=== PATIENT | male | born 1995 | race Caucasian/White ===

== ENCOUNTER → 2022-10-21 15:30 | Outpatient (BNVA) | payer OTHER, SELFPAY | PROVIDERS: PCP Nurse Practitioner Family; Visit Provider Surgery | DX: Z01.818 Encounter for other preprocedural examination (principal); K60.3 Anal fistula | CPT/HCPCS: 99202 ==

== ENCOUNTER 2022-11-05 11:15 | Day surgery (SDC) | payer OTHER, SELFPAY ==
--- NOTE | 2022-11-04 09:43 | HO.ANESPROP2 ---
Documented by User: Isis Perrin NP 11/04/22 09:44 HPI - Anesthesia Eval Consult details Narrative: 27yo M for Exam Under Anesthesia, possible fistulotomy or Seton placement PMFSH Active Problems Active Problems: All Active Problems (Updated 11/01/22 @ 13:06 by Windy Bhandari RN) Anal fistula (Acute) Anxiety (Acute) Past Medical History Medical History Anal fistula Anxiety Back pain Panic disorder [episodic paroxysmal anxiety] Family History Family History Mother No problems noted. Father No problems noted. Social History Social History Alcohol intake: current Alcohol intake frequency: other Alcohol type: beer Patient Tobacco Use Status: Current everyday Tobacco user Cigarettes Per Day: 6 Use of substances other than those prescribed or required for medical reasons: No Are you DNR?: No Advance Directives: No Advance Directives Information Provided: Yes Meds Allergies Allergy/AdvReac Type Severity Reaction Status Date / Time No Known Allergies Allergy Verified 10/21/22 15:37 Home Medications Medication Instructions Recorded Confirmed Last Taken Type clonazepam 1 mg tablet 1 mg PO DAILY 10/21/22 11/01/22 Unknown History lurasidone 20 mg tablet 20 mg PO BID 11/01/22 11/01/22 Unknown History quetiapine 25 mg tablet 0.5 - 2 tab PO DAILY PRN as 11/01/22 11/01/22 Unknown History directed sertraline 100 mg tablet 1 tab PO DAILY 11/01/22 11/01/22 Unknown History sertraline 25 mg tablet 1 tab PO DAILY 11/01/22 11/01/22 Unknown History Exam Exam Date and Time: November 04, 2022 0943 Assessment and Plan Assessment Anesthesia Assessment: Chart Reviewed Documented by User: Christy Doll MD 11/05/22 13:50 PMFSH Past Medical History Medical History Anal fistula Anxiety Back pain Panic disorder [episodic paroxysmal anxiety] Functional capacity: independent ambulation Family History Family History Mother No problems noted. Father No problems noted. Family history of problems with anesthesia: No Surgical History History of Problems with Anesthesia: No Social History Social History Alcohol intake: current Alcohol intake frequency: other Alcohol type: beer Patient Tobacco Use Status: Current everyday Tobacco user Cigarettes Per Day: 6 Use of substances other than those prescribed or required for medical reasons: No Are you DNR?: No Advance Directives: No Advance Directives Information Provided: Yes Meds Allergies Allergy/AdvReac Type Severity Reaction Status Date / Time No Known Allergies Allergy Verified 10/21/22 15:37 Home Medications Medication Instructions Recorded Confirmed Last Taken Type clonazepam 1 mg tablet 1 mg PO DAILY 10/21/22 11/01/22 Unknown History lurasidone 20 mg tablet 20 mg PO BID 11/01/22 11/01/22 Unknown History quetiapine 25 mg tablet 0.5 - 2 tab PO DAILY PRN as 11/01/22 11/01/22 Unknown History directed sertraline 100 mg tablet 1 tab PO DAILY 11/01/22 11/01/22 Unknown History sertraline 25 mg tablet 1 tab PO DAILY 11/01/22 11/01/22 Unknown History Assessment and Plan Final Anesthetic Review Family History of Problems with Anesthesia: No History of Problems with Anesthesia: No Final Preanesthetic Review: No Changes in Pt Med Stat, Meds/Allgs Chart Reviewed and Anes Risks/Benef Reviewed Patient Risk: Low Procedure Risk: Low Anesthetic Plan Anesthetic Plan: GA Disposition: Standard PACU
[2022-11-05] VITALS (11 sets, daily range): BP systolic 111–132; BP diastolic 64–87; PULSE 52–69; RESP 16–18; TEMP 36.1–36.6; O2SAT 94–98; BMI 25.8
[2022-11-05] MEDS: Lactated Ringers 1,000 ML 100 ML IVCONT (12:21)
--- NOTE | 2022-11-05 13:31 | W.PM.OPN ---
Operative Note Operative Note Date of Service: 11/05/22 Narrative: Preop diagnosis: anal fistula Postop diagnosis: anal fistula Procedure: Exam under anesthesia, unroofing of anal fistula, seton placement Surgeon: Gianluca Almeida MD The patient is a 27M with a sinus on the right perianal area, with recurrrent draiange, c/w an anal fistula. I exlaine to hm it is best to do an exam under anesthesia, locate the tract and possibly do a fistulotomy or seton placement. He understood the technqiue of this procedure and was aware of the risks, benefits and alterantives. He was brought to the OR and placed in prone jacknife position under general anesthesia via ET tube. The buttocks were retracted with wide tape laterally. The perianal area was prepped and draped in the sual sterile fashion. A surgical timeout was done. The patient received Cefotan preoperatively. Examination of the perianal area revealed an external sinus on the right lateral, about 2-3 cm from the verge. I inserted the Breana Mena retractor and examined the anal canal circumferentially. The internal sinus appeared to be in the posterior midline at the level of the dentate line. The traqct was therefore long and tortuous as it traveled from the external sinus going posterior and laterally then surved back to the posterior midline. I passed the probe through the external sinus easily and was able to follow the tract as it advanced posteriorly. however, because of the long trat and angulation, I could not advance the probe through the internal sinus. I therefore had to unrookf the long tract to make this shorter. I then reinserted the probe through the open tract in the perianal area and eventually, with the shorter tract I was able to advance the probe through the internal sinus. I passed a yellow vessel loop as a seton and looped this with silk 2-0 ties. There were no other indurated areas. I cauterized the unroofed area around the external sinus. Once hemostasis was confirmed, I irrigated and infiltrated the perianal area with Marcaine .%% for postop analgesia. The patient was also noted to have external and internal hemorrhoids. He tolerated the procedure well. There was minimal blood loss. He was extubated without difficulty and transferred to the PACU with stable vital signs.
--- NOTE | 2022-11-05 13:50 | HO.POSTANES ---
Post Anesthesia Evaluation Post Anesthesia Evaluation Vital Signs: Vital Signs Temp Pulse Resp BP Pulse Ox O2 Del Method 11/05/22 12:19 97.8 F 69 16 113/76 96 Room Air Anesthesia: General Endotracheal-GETA Mental Status: Awake Pain Control: Satisfactory Nausea/Vomiting: None Hydration: Adequate Anesthesia-Related Issues: No Anes. Related Issues
[2022-11-05] MEDS: Ketorolac Tromethamine 30 MG/ML VIAL IVPUSH (13:58)
[2022-11-05] MEDS: fentaNYL citrate/PF 100 MCG/2 ML VIAL 25 MCG IVPUSH ×2 (14:00→14:06)
[2022-11-05] MEDS: oxyCODONE HCl Immed Release 5 MG TABLET 10 MG PO (14:01)
[2022-11-05] MEDS: Acetaminophen 325 MG TABLET 650 MG PO (14:04)
== END 2022-11-05 15:30 | disposition home or self-care (01) ==
PROVIDERS: PCP Nurse Practitioner Family; Visit Provider Surgery
PROC: (CPT 46020; principal; 2022-11-05 13:00)
DX: K63.0 Abscess of intestine (principal); K64.8 Other hemorrhoids; K64.4 Residual hemorrhoidal skin tags; F41.9 Anxiety disorder, unspecified; F41.0 Panic disorder [episodic paroxysmal anxiety]; F17.210 Nicotine dependence, cigarettes, uncomplicated; Z79.899 Other long term (current) drug therapy
CPT/HCPCS: 46020; J1100; J1885; J2250; J2405; J2795; J3010

== ENCOUNTER → 2022-11-11 14:22 | Outpatient (BNVA) | payer OTHER, SELFPAY | PROVIDERS: PCP Nurse Practitioner Family; Visit Provider Surgery | DX: Z13.89 Encounter for screening for other disorder (principal) ==

== ENCOUNTER → 2022-12-02 15:40 | Outpatient (BNVA) | payer OTHER, SELFPAY | PROVIDERS: PCP Nurse Practitioner Family; Visit Provider Surgery | DX: Z13.89 Encounter for screening for other disorder (principal) ==

== ENCOUNTER → 2023-01-19 15:55 | Outpatient (BNVA) | payer OTHER, SELFPAY | PROVIDERS: PCP Nurse Practitioner Family; Visit Provider Surgery | DX: K60.3 Anal fistula (principal) | CPT/HCPCS: 99212 ==

== ENCOUNTER → 2023-03-03 11:40 | Outpatient (BNVA) | payer OTHER, SELFPAY | PROVIDERS: PCP Nurse Practitioner Family; Visit Provider Surgery | DX: K60.3 Anal fistula (principal) | CPT/HCPCS: 99212 ==

== ENCOUNTER 2023-12-21 09:27 | Outpatient (AMB) | payer OTHER, SELFPAY ==
--- NOTE | 2023-12-21 09:28 | A.OFFVIS_ITS ---
Intake Vital Signs 12/21/23 09:35 Height 5 ft 7 in BP 129/74 Blood Pressure Location Rt brachial Position Sitting Pulse 101 H Intake Visit Reasons: Anal fistula (surgery 11/05/22) Intake Note: This patient presents for an assessment for anal fistula. Hx surgery 11/05/22. Pt c/o; reports rectal bleeding and discharge, reports occasional constipation. Valve Inspector Required: No Accompanied by: Self / Same As Patient Allergies No Known Allergies Allergy (Verified 12/21/23 09:37) Medication List - Last Reconciled 12/21/23 by Gianluca Almeida MD clonazepam 1 mg PO DAILY ibuprofen 600 mg PO Q6H PRN lurasidone 20 mg PO BID menthol-zinc oxide 0.44-20.6 % (Calmoseptine) 1 appl topical QID PRN menthol-zinc oxide 0.44-20.6 % (Calmoseptine) 1 appl topical QID PRN oxycodone-acetaminophen 5-325 mg (Percocet) 1 tab PO Q4-6H PRN oxycodone-acetaminophen 5-325 mg (Percocet) 1 tab PO TID PRN quetiapine 0.5 - 2 tabs PO DAILY PRN sertraline 1 tab PO DAILY sertraline 1 tab PO DAILY tramadol 50 mg PO TID PRN tramadol 50 mg PO TID PRN HPI Anal fistula (surgery 11/05/22) HPI Details He has had a seton in place for an anal fistula since October,. However, he had seen me in the office since February,. He says says that he had canceled many times as he has issues with transportation. He says he has had some pain on the perianal skin for several months now. He says that this worsens when he is walking. He feels the seton seems to be rubbing against his skin a lot He says he continues to have some drainage. He also sees some blood periodically. [facility] Medical History Panic disorder [episodic paroxysmal anxiety] Back pain Anal fistula Anxiety Surgical History History of surgery (11/05/22) Family History Mother No problems noted. Father No problems noted. Social History Alcohol intake: current Alcohol intake frequency: other Alcohol type: beer Patient Tobacco Use Status: Current everyday Tobacco user Cigarettes Per Day: 6 Review of Systems Const Denies chills and Denies fever(s) Card Denies chest pain, Denies dyspnea and Denies dyspnea on exertion Resp Denies cough, Denies dyspnea and Denies dyspnea on exertion GI Denies hematochezia and Denies change in bowel habits Denies hematuria and Denies difficulty urinating Musc Denies back pain and Denies limited range of motion Neuro Denies focal weakness and Denies convulsions Psych Denies depression and Denies mood swings Physical Exam Vital Signs: Last Vital Signs Pulse 101 H 12/21/23 09:35 BP 129/74 12/21/23 09:35 Const General: comfortable and no acute distress Resp Effort & Inspection: normal respiratory effort Cardio Rate: regular rate GI Other: Rectal exam shows the seton to be in place on the right side, no new induration, no fluctuance, note of circumferential perianal skin irritation, no new sinuses Palpation (GI): Soft to palpation Assessment & Plan Assessment & Plan (1) Anal fistula: Code(s): K60.3 - Anal fistula Plan: He has a seton in place since October,. He has not seen me office in about 9 months He complains of pain around the seton in the perianal area. Examination does not show an obvious abscess or induration. There is note of skin irritation so I am going to put him on trial of Calmoseptine. He wanted some pain medications I will prescribe him tramadol I had advised him on the importance of keeping the area clean and dry I will see him again in the office in about 3 weeks. Medications: New tramadol 50 mg PO TID PRN 20 tabs 0RF pain menthol-zinc oxide 0.44-20.6 % (Calmoseptine) 1 appl topical QID PRN 113 grams 0RF skin irritation Coding Level of Care Code Est Pt Level 3 (22258) Diagnoses Anal fistula K60.3
[2023-12-21 09:35] VITALS: BP 129/74; PULSE 101
== END 2023-12-21 09:46 | disposition home or self-care (01) ==
PROVIDERS: PCP Nurse Practitioner Family; Visit Provider Surgery
DX: K60.3 Anal fistula (principal)
CPT/HCPCS: 99213

== ENCOUNTER → 2023-12-21 09:27 | Outpatient (BNVA) | payer OTHER, SELFPAY | PROVIDERS: PCP Nurse Practitioner Family; Visit Provider Surgery | DX: K60.3 Anal fistula (principal) | CPT/HCPCS: 99212 ==

== ENCOUNTER 2023-12-24 16:01 | Emergency (ER) | payer MEDICAID, SELFPAY ==
[2023-12-24 16:11] VITALS: BP 131/76; PULSE 109; RESP 18; TEMP 36.4; O2SAT 94; BMI 27.4
--- NOTE | 2023-12-24 16:12 | ED_ITS ---
HPI - General Adult General Chief complaint: Skin/Abscess/Foreign Body Stated complaint: infection Time Seen by Provider: 12/24/23 19:12 Related Data Home Medications Medication Instructions Recorded Confirmed clonazepam 1 mg tablet 1 mg PO DAILY 10/21/22 12/21/23 lurasidone 20 mg tablet 20 mg PO BID 11/01/22 12/21/23 quetiapine 25 mg tablet 0.5 - 2 tab PO DAILY PRN as 11/01/22 12/21/23 directed sertraline 100 mg tablet 1 tab PO DAILY 11/01/22 12/21/23 sertraline 25 mg tablet 1 tab PO DAILY 11/01/22 12/21/23 Previous Rx's Medication Instructions Recorded ibuprofen 600 mg tablet 600 mg PO Q6H PRN pain #30 tabs 11/11/22 tramadol 50 mg tablet 50 mg PO TID PRN pain #20 tabs 12/28/22 menthol 0.44 %-zinc oxide 20.6 % 1 appl topical QID PRN perianal 03/03/23 topical ointment (Calmoseptine) skin irritation #113 grams oxycodone-acetaminophen 5 mg-325 1 tab PO TID PRN pain #15 tabs 04/29/23 mg tablet (Percocet) menthol 0.44 %-zinc oxide 20.6 % 1 appl topical QID PRN skin 12/21/23 topical ointment (Calmoseptine) irritation #113 grams tramadol 50 mg tablet 50 mg PO TID PRN pain #20 tabs 12/21/23 cefuroxime axetil 250 mg tablet 250 mg PO BID 7 days #14 tabs 12/24/23 oxycodone-acetaminophen 5 mg-325 1 tab PO Q4-6H PRN pain (scale 12/26/23 mg tablet (Percocet) score 7-10) #15 tabs tramadol 50 mg tablet 50 mg PO Q6H PRN pain #15 tabs 12/26/23 Allergies Allergy/AdvReac Type Severity Reaction Status Date / Time No Known Allergies Allergy Verified 12/24/23 16:20 [facility] Past Medical History Medical History Panic disorder [episodic paroxysmal anxiety] Back pain Anal fistula Anxiety Surgical History History of surgery (11/05/22) Family History Family History Mother No problems noted. Father No problems noted. Social History Social History Alcohol intake: current Alcohol intake frequency: other Alcohol type: beer Patient Tobacco Use Status: Current everyday Tobacco user Cigarettes Per Day: 6 Smoked in Last 30 Days: Yes Use of substances other than those prescribed or required for medical reasons: No Advance Directives: No Advance Directives Information Provided: No Physical Exam ED Vital Signs: BMI result Body Mass Index 27.4 Course Course Course Narrative: This is a rapid medical exam: Additional HPI, ROS, PE not included below will be deferred to primary provider. Patient is a 28-year-old male presenting to the emergency department with complaint of pain to right buttock with purulent drainage and foul odor. Patient has anal fistula with seton in place, saw Dr. Almeida on 12/21 and notes no evidence of abscess or induration but does note skin irritation. Patient was prescribed Calmoseptine and tramadol at that visit. Patient reports bleeding and pain with walking. Denies fevers. Area not visualized in triage due to privacy concerns. Duplicate chart created for same visit, primary provider LALA Burton. Medications Administered Discontinued Medications Generic Name Dose Route Start Last Admin Trade Name Freq PRN Reason Stop Dose Admin Oxycodone HCl 10 mg 12/24/23 20:37 12/24/23 20:55 Oxycodone Hcl Immed Release 5 Mg Tablet PO 12/24/23 20:38 10 mg ONCE ONE Administration Medical Decision Making Lab Data 12/24/23 19:44 12/24/23 19:44 Labs: Lab Results 12/24/23 12/24/23 Range/Units 19:43 19:44 WBC 8.1 (4.8-10.8) X10*3/uL RBC 5.07 (4.60-5.80) X10*6/uL Hgb 15.9 (14.0-18.0) g/dl Hct 44.6 (42.0-52.0) % MCV 88.0 (80.0-98.0) fL MCH 31.4 (27.0-33.0) pg MCHC 35.7 (31.0-36.0) g/dl RDW 11.9 (11.0-16.0) % Plt Count 290 (160-400) X10*3/uL MPV 9.7 (9.4-12.4) fL Immature Gran % (Auto) 0.2 (0.0-0.4) % Neut % (Auto) 52.9 (45-73) % Lymph % (Auto) 38.2 (20-40) % [place] % (Auto) 5.4 (2-11) % Eos % (Auto) 2.8 (0-4) % Baso % (Auto) 0.5 (0-2) % Lymph # (Auto) 3.1 (1.2-4.9) X10*3/uL [place] # (Auto) 0.4 (0.1-1.2) X10*3/uL Eos # (Auto) 0.2 (0.0-0.4) X10*3/uL Baso # (Auto) 0.0 (0.0-0.2) X10*3/uL Abs Immat Gran (auto) 0.02 (0.00-0.03) X10*3/uL Absolute Neuts (auto) 4.3 (2.0-8.3) x10*3/uL Absolute Nucleated RBC 0.000 (0.0-0.012) X10*3/uL Nucleated RBC % (auto) 0.0 (0.0-0.2) /100WBC ESR 2 (0-15) MM/HR Sodium 140 (135-145) mmol/L Potassium 4.5 (3.3-5.1) mmol/L Chloride 104 (96-108) mmol/L Carbon Dioxide 26 (22-29) mmol/L Anion Gap 15 (12-20) BUN 8 L (9-16) mg/dL Creatinine 0.83 (0.5-1.4) mg/dL Estim Creat Clear Calc 136.2 Estimated GFR > 60 Random Glucose 84 (60-115) mg/dL Lactic Acid 1.5 (0.5-2.0) mmol/L Calcium 9.3 (8.4-10.2) mg/dL Total Bilirubin 0.2 (0.0-1.0) mg/dL AST 30 (5-37) U/L ALT 30 (0-40) U/L Alkaline Phosphatase 80 (39-117) U/L C-Reactive Protein 0.57 H (< or = 0.50) mg/dL Total Protein 7.6 (6.5-8.0) g/dL Albumin 4.5 (3.5-5.0) g/dL Discharge Plan Discharge Clinical Impression: Anal fistula, Cellulitis Patient Disposition: Home, Self-Care Instructions: Cellulitis (DC), Anorectal Abscess and Anal Fistula (ED) Additional Instructions: Follow up with your primary care provider and the general surgeon. Return to the emergency department immediately if your symptoms worsen or if you develop any dizziness, shortness of breath, difficulty breathing, chest pain, blurry vision, loss of vision, nausea, vomiting, abdominal pain, fever, chills, back pain, or any other complaints. Prescriptions: New cefuroxime axetil 250 mg tablet 250 mg PO BID 7 Days Qty: 14 0RF No Action tramadol 50 mg tablet 50 mg PO TID PRN (Reason: pain) Qty: 20 0RF oxycodone-acetaminophen [Percocet] 5-325 mg tablet 1 tab PO TID PRN (Reason: pain) Qty: 15 0RF Rx Instructions: Partial Fill upon patient request. tramadol 50 mg tablet 50 mg PO Q6H PRN (Reason: pain) Qty: 15 0RF oxycodone-acetaminophen [Percocet] 5-325 mg tablet 1 tab PO Q4-6H PRN (Reason: pain (scale score 7-10)) Qty: 15 0RF Rx Instructions: Partial Fill upon patient request. quetiapine 25 mg tablet 0.5 - 2 tab PO DAILY PRN (Reason: as directed) sertraline 100 mg tablet 1 tab PO DAILY sertraline 25 mg tablet 1 tab PO DAILY lurasidone 20 mg Tablet 20 mg PO BID Rx Instructions: must administer with food (at least 350 calories) clonazepam 1 mg tablet 1 mg PO DAILY ibuprofen 600 mg tablet 600 mg PO Q6H PRN (Reason: pain) Qty: 30 0RF menthol-zinc oxide [Calmoseptine] 0.44-20.6 % ointment 1 appl topical QID PRN (Reason: perianal skin irritation) Qty: 113 0RF tramadol 50 mg tablet 50 mg PO TID PRN (Reason: pain) Qty: 20 0RF menthol-zinc oxide [Calmoseptine] 0.44-20.6 % ointment 1 appl topical QID PRN (Reason: skin irritation) Qty: 113 0RF Referrals: [facility] Family Medicine [Provider Group] (Call to establish and follow up with a primary care provider. If you already have a primary care provider, please follow up with them.) [facility], [place] [Provider Group] (Call to establish and follow up with a primary care provider. If you already have a primary care provider, please follow up with them.) [facility],[place] [Provider Group] (Call to establish and follow up with a primary care provider. If you already have a primary care provider, please follow up with them.) Gianluca Almeida MD [Primary Care Provider] - Interventions: ED Discharge Assessment Last Done: 12/24/23 21:00 Discharge Date/Time: 12/24/23 21:01 Print Language: Moroccan
[2023-12-24 17:42] VITALS: BP 122/83; PULSE 84; RESP 16; TEMP 36.6; O2SAT 99
--- NOTE | 2023-12-24 18:37 | PC.NURSE ---
a&ox4. vss and up to date. pt presents to the ED d/t increase in pain in right buttock. pt verbalizing having past procedure and there has been a sudden onset of pain/bloody/yellow drainage/odor. pt denies fever/chills. pt states that his pcp sent him here d/t not being available this weekend. pt is in search of refill on po tramadol. pt also states he uses cream to help w/ preventing irritation. pt states pain increases w/ movement despite being covered by a bandage. pt waiting to be seen by ED provider at this time. respirations even and unlabored. call jose placed within reach.
--- NOTE | 2023-12-24 19:32 | ED.SKABFB ---
HPI - Skin/Abscess/Foreign Bdy General Chief complaint: Skin/Abscess/Foreign Body Stated complaint: infection Time Seen by Provider: 12/24/23 19:12 History of Present Illness HPI narrative: Patient is a 28 year old assigned male at with a history of anal fistula for which he follows with [facility] Surgery, presenting to the emergency department today with concerns of continued draining from the area and pain. Patient states that this is an issue he has been dealing with for years and he seems to be dealing with another flare as of the last few days. Patient states that the area is on his right gluteal cleft and he believes it to be draining again and it is painful to sit on. Patient states that he is prescribed Tramadol at home and that is not cutting the pain. Patient denies any dizziness, lightheadedness, abdominal pain, nausea, vomiting, fever, chills, blurry vision, double vision, loss of vision, chest pain, difficulty breathing, shortness of breath, back pain, night sweats, pain with urination, increased urinary frequency, increased urinary urgency, blood in his urine or stool, syncope or a near syncopal episode, recent trauma or falls, bowel incontinence, bladder incontinence, bowel retention, bladder retention, or any other complaints at this time. MD complaint: abscess/boil Onset (ago): day(s) Location: buttocks Severity scale (1-10): 3 Quality: constant Pain Consistency: constant Relieving factors: none Exacerbating factors: movement Context: none Associated symptoms: denies other symptoms Treatments prior to arrival: prescription analgesic Related Data Home Medications Medication Instructions Recorded Confirmed clonazepam 1 mg tablet 1 mg PO DAILY 10/21/22 12/21/23 lurasidone 20 mg tablet 20 mg PO BID 11/01/22 12/21/23 quetiapine 25 mg tablet 0.5 - 2 tab PO DAILY PRN as 11/01/22 12/21/23 directed sertraline 100 mg tablet 1 tab PO DAILY 11/01/22 12/21/23 sertraline 25 mg tablet 1 tab PO DAILY 11/01/22 12/21/23 Previous Rx's Medication Instructions Recorded ibuprofen 600 mg tablet 600 mg PO Q6H PRN pain #30 tabs 11/11/22 oxycodone-acetaminophen 5 mg-325 1 tab PO Q4-6H PRN pain (scale 12/17/22 mg tablet (Percocet) score 7-10) #15 tabs tramadol 50 mg tablet 50 mg PO TID PRN pain #20 tabs 12/28/22 menthol 0.44 %-zinc oxide 20.6 % 1 appl topical QID PRN perianal 03/03/23 topical ointment (Calmoseptine) skin irritation #113 grams oxycodone-acetaminophen 5 mg-325 1 tab PO TID PRN pain #15 tabs 04/29/23 mg tablet (Percocet) menthol 0.44 %-zinc oxide 20.6 % 1 appl topical QID PRN skin 12/21/23 topical ointment (Calmoseptine) irritation #113 grams tramadol 50 mg tablet 50 mg PO TID PRN pain #20 tabs 12/21/23 cefuroxime axetil 250 mg tablet 250 mg PO BID 7 days #14 tabs 12/24/23 Allergies Allergy/AdvReac Type Severity Reaction Status Date / Time No Known Allergies Allergy Verified 12/24/23 16:20 Review of Systems Constitutional: Constitutional: Reports no additional constitutional complaints, Denies chills, Denies fever(s) and Denies night sweats Eyes: Eyes: Reports no additional eye complaints, Denies blurry vision, Denies change in vision, Denies diplopia, Denies eye discharge, Denies loss of vision and Denies eye pain ENT: Denies dizziness Cardiovascular: Cardiovascular: Reports no additional cardiovascular complaints, Denies chest pain, Denies lightheadedness, Denies Loss of Consciousness and Denies dyspnea Respiratory: Respiratory: Reports no additional respiratory complaints and Denies dyspnea Gastrointestinal: Gastrointestinal: Reports no additional gastrointestinal complaints, Denies abdominal pain, Denies melena, Denies hematochezia, Denies change in bowel habits and Denies change in stool character Comments: gluteal cleft pain, discharge from area of previously repaired anal fistula Genitourinary: Genitourinary: Reports no additional male genitourinary complaints, Denies hematuria, Denies oliguria, Denies difficulty urinating, Denies dysuria, Denies urinary frequency, Denies urinary hesitancy, Denies urinary incontinence and Denies urinary urgency Musculoskeletal: Musculoskeletal: Reports no additional musculoskeletal complaints, Denies numbness and Denies tingling Neurologic: Denies dizziness, Denies loss of vision, Denies numbness and Denies tingling Psychiatric: Psychiatric: Reports no additional psychiatric complaints Endocrine: Endocrine: Reports no additional endocrine complaints Hematologic/Lymphatic: Hematologic/Lymphatic: Reports no additional hematologic/lymphatic complaints Allergic/Immunologic: Allergic/Immunologic: Reports no additional allergic/immunologic complaints PMFSH Past Medical History Attestation statement: The following information was validated with the patient. Source: old records reviewed and nursing notes reviewed Medical History Panic disorder [episodic paroxysmal anxiety] Back pain Anal fistula Anxiety Surgical History History of surgery (11/05/22) Family History Family History Mother No problems noted. Father No problems noted. Social History Social History Alcohol intake: current Alcohol intake frequency: other Alcohol type: beer Patient Tobacco Use Status: Current everyday Tobacco user Cigarettes Per Day: 6 Smoked in Last 30 Days: Yes Use of substances other than those prescribed or required for medical reasons: No Advance Directives: No Advance Directives Information Provided: No Physical Exam Vital Signs: Vital Signs: Last Vital Signs Temp 98.2 F 12/24/23 20:54 Pulse 76 12/24/23 20:54 Resp 14 12/24/23 20:54 BP 111/73 12/24/23 20:54 Pulse Ox 99 12/24/23 20:54 O2 Del Method Room Air 12/24/23 20:54 BMI result Body Mass Index 27.4 Const: General: cooperative, no acute distress, alert and awake Nutritional Appearance: well nourished Orientation/consciousness: patient oriented x3 Limitations: no limitations HEENT: Head: Yes normal to inspection and Yes atraumatic Ears: hearing grossly normal bilaterally and external ears normal General nose exam: Normal external nose present, no nasal discharge noted and no epistaxis Face and sinus: Yes normal facial exam, No abrasion and No laceration Mouth: Normal oral and palatal mucosa present, no drooling and no muffled voice Eyes: General: appearance normal, both eyes and all related structures Periorbital: periorbital findings normal Eyelids: Yes eyelids normal Conjunctivae: conjunctivae normal Pupils: Equal, round and reactive pupils present EOM: EOMs intact bilaterally Neck: Neck: Yes normal visual inspection, Yes full ROM and Yes no lymphadenopathy Chest: Chest palpation & inspection: normal inspection of the chest Resp: Effort & Inspection: normal respiratory effort and able to speak in complete sentences GI: Rectal Exam - Male: Yes Anal fissure(s) present (with retained repair clip/suture) and Yes other (very minimal erythema present to the right gluteal cleft, no fluctuance) Neuro: General: patient oriented x3 and moves all extremities Cranial nerves: Yes Equal, round and reactive pupils present Cognition (Neuro): normal cognition Motor exam (neuro): 5/5 motor strength present throughout Sensory Exam: Normal double simultaneous stimulation for sensation Coordination: [id number] test normal Extrem: General: Yes normal to inspection, Yes full ROM and Yes capillary refill normal Psych: Appearance: grossly normal Mental Status: mental status grossly normal Affect: normal affect Attitude: cooperative Thought process: Normal thought process present Thought content: Normal thought content present Insight: Good insight present (Psych) Medications Administered Discontinued Medications Generic Name Dose Route Start Last Admin Trade Name Freq PRN Reason Stop Dose Admin Oxycodone HCl 10 mg 12/24/23 20:37 12/24/23 20:55 Oxycodone Hcl Immed Release 5 Mg Tablet PO 12/24/23 20:38 10 mg ONCE ONE Administration Medical Decision Making Medical Decision Making [facility] Narrative: Patient is a 28 year old assigned male at with a history of anal fistula presenting to the emergency department today with pain to his gluteal cleft and possible drainage. Patient's physical exam was as noted. There was an erythematous area to the right gluteal cleft with no fluctuance and no visual drainage appreciated. Patient's blood work was unremarkable. I spoke to the general surgeon conference director who recommended PO antibiotics and outpatient follow up in the office. I explained my physical exam findings as well as all test results to the patient. I answered all questions asked by the patient. I stressed the importance of the patient taking his medication as prescribed. I stressed the importance of the patient following up with his primary care provider and general surgeon. I stressed the importance of the patient returning to the emergency department immediately if his symptoms were to worsen or if he were to develop any dizziness, shortness of breath, difficulty breathing, chest pain, blurry vision, loss of vision, nausea, vomiting, abdominal pain, fever, chills, back pain, or any other complaints. Patient verbalized agreement and understanding with this treatment plan and discharge. Differential Diagnosis Differential Diagnoses: The differential diagnosis associated with the presentation includes abscess pilondial cyst anal fistula cellulitis Admission/Observation Consideration of admission/observation: Escalation of care including admission/observation considered Patient would have been admitted to the hospital had his work up had any findings where hospital admission was appropriate and his clinical presentation warranted hospital admission. Consult Healthcare Provider Management of the patient was discussed with: Programmer Analyst Health It (spoke with the general surgeon conference director as noted in the MDM Rationale portion of this note.) Lab Data [facility] Lab Attestation statement: I reviewed the patient's lab results. My interpretation of these results are in the MDM Rationale portion of this note. 12/24/23 19:44 12/24/23 19:44 Labs: Lab Results 12/24/23 12/24/23 Range/Units 19:43 19:44 WBC 8.1 (4.8-10.8) X10*3/uL RBC 5.07 (4.60-5.80) X10*6/uL Hgb 15.9 (14.0-18.0) g/dl Hct 44.6 (42.0-52.0) % MCV 88.0 (80.0-98.0) fL MCH 31.4 (27.0-33.0) pg MCHC 35.7 (31.0-36.0) g/dl RDW 11.9 (11.0-16.0) % Plt Count 290 (160-400) X10*3/uL MPV 9.7 (9.4-12.4) fL Immature Gran % (Auto) 0.2 (0.0-0.4) % Neut % (Auto) 52.9 (45-73) % Lymph % (Auto) 38.2 (20-40) % Ray % (Auto) 5.4 (2-11) % Eos % (Auto) 2.8 (0-4) % Baso % (Auto) 0.5 (0-2) % Lymph # (Auto) 3.1 (1.2-4.9) X10*3/uL Ray # (Auto) 0.4 (0.1-1.2) X10*3/uL Eos # (Auto) 0.2 (0.0-0.4) X10*3/uL Baso # (Auto) 0.0 (0.0-0.2) X10*3/uL Abs Immat Gran (auto) 0.02 (0.00-0.03) X10*3/uL Absolute Neuts (auto) 4.3 (2.0-8.3) x10*3/uL Absolute Nucleated RBC 0.000 (0.0-0.012) X10*3/uL Nucleated RBC % (auto) 0.0 (0.0-0.2) /100WBC ESR 2 (0-15) MM/HR Sodium 140 (135-145) mmol/L Potassium 4.5 (3.3-5.1) mmol/L Chloride 104 (96-108) mmol/L Carbon Dioxide 26 (22-29) mmol/L Anion Gap 15 (12-20) BUN 8 L (9-16) mg/dL Creatinine 0.83 (0.5-1.4) mg/dL Estim Creat Clear Calc 136.2 Estimated GFR > 60 Random Glucose 84 (60-115) mg/dL Lactic Acid 1.5 (0.5-2.0) mmol/L Calcium 9.3 (8.4-10.2) mg/dL Total Bilirubin 0.2 (0.0-1.0) mg/dL AST 30 (5-37) U/L ALT 30 (0-40) U/L Alkaline Phosphatase 80 (39-117) U/L C-Reactive Protein 0.57 H (< or = 0.50) mg/dL Total Protein 7.6 (6.5-8.0) g/dL Albumin 4.5 (3.5-5.0) g/dL Prescription Management I considered prescription management with: Antibiotic (patient prescribed an antibiotic.) Discharge Plan Discharge Clinical Impression: Anal fistula, Cellulitis Patient Disposition: Home, Self-Care Instructions: Anorectal Abscess and Anal Fistula (ED), Cellulitis (DC) Additional Instructions: Follow up with your primary care provider and the general surgeon. Return to the emergency department immediately if your symptoms worsen or if you develop any dizziness, shortness of breath, difficulty breathing, chest pain, blurry vision, loss of vision, nausea, vomiting, abdominal pain, fever, chills, back pain, or any other complaints. Prescriptions: New cefuroxime axetil 250 mg tablet 250 mg PO BID 7 Days Qty: 14 0RF No Action oxycodone-acetaminophen [Percocet] 5-325 mg tablet 1 tab PO Q4-6H PRN (Reason: pain (scale score 7-10)) Qty: 15 0RF Rx Instructions: Partial Fill upon patient request. tramadol 50 mg tablet 50 mg PO TID PRN (Reason: pain) Qty: 20 0RF oxycodone-acetaminophen [Percocet] 5-325 mg tablet 1 tab PO TID PRN (Reason: pain) Qty: 15 0RF Rx Instructions: Partial Fill upon patient request. quetiapine 25 mg tablet 0.5 - 2 tab PO DAILY PRN (Reason: as directed) sertraline 100 mg tablet 1 tab PO DAILY sertraline 25 mg tablet 1 tab PO DAILY lurasidone 20 mg Tablet 20 mg PO BID Rx Instructions: must administer with food (at least 350 calories) clonazepam 1 mg tablet 1 mg PO DAILY ibuprofen 600 mg tablet 600 mg PO Q6H PRN (Reason: pain) Qty: 30 0RF menthol-zinc oxide [Calmoseptine] 0.44-20.6 % ointment 1 appl topical QID PRN (Reason: perianal skin irritation) Qty: 113 0RF tramadol 50 mg tablet 50 mg PO TID PRN (Reason: pain) Qty: 20 0RF menthol-zinc oxide [Calmoseptine] 0.44-20.6 % ointment 1 appl topical QID PRN (Reason: skin irritation) Qty: 113 0RF Referrals: [facility] [[place] Group] (Call to establish and follow up with a primary care provider. If you already have a primary care provider, please follow up with them.) [facility] [Provider Group] (Call to establish and follow up with a primary care provider. If you already have a primary care provider, please follow up with them.) [facility] [Provider Group] (Call to establish and follow up with a primary care provider. If you already have a primary care provider, please follow up with them.) Gianluca Almeida MD [Primary Care Provider] - Interventions: ED Discharge Assessment Last Done: 12/24/23 21:00 Discharge Date/Time: 12/24/23 21:01 Print Language: Nicaraguan
[2023-12-24 19:50] LABS: MANUAL DIFF FLAG NO
[2023-12-24 20:00] LABS: Basophils Percent Auto 0.5 % (0-2); Eosinophils Absolute Auto 0.2 X10*3/uL (0.0-0.4); Eosinophils Percent Auto 2.8 % (0-4); Hematocrit 44.6 % (42.0-52.0); Hemoglobin 15.9 g/dl (14.0-18.0); Imm Gran Abs Auto 0.02 X10*3/uL (0.00-0.03); Imm Gran Pct Auto 0.2 % (0.0-0.4); Lymphocytes Absolute Auto 3.1 X10*3/uL (1.2-4.9); Lymphocytes Percent Auto 38.2 % (20-40); Mean Corpuscular HGB Conc 35.7 g/dl (31.0-36.0); Mean Corpuscular Hemoglobin 31.4 pg (27.0-33.0); Mean Platelet Volume 9.7 fL (9.4-12.4); Monocytes Absolute Auto 0.4 X10*3/uL (0.1-1.2); Monocytes Percent Auto 5.4 % (2-11); Neutrophils Absolute Auto 4.3 x10*3/uL (2.0-8.3); Neutrophils Percent Auto 52.9 % (45-73); Platelet Count 290 X10*3/uL (160-400); Red Blood Count 5.07 X10*6/uL (4.60-5.80); Red Cell Distribution Width 11.9 % (11.0-16.0); White Blood Count 8.1 X10*3/uL (4.8-10.8)
[2023-12-24 20:06] LABS: Lactic Acid 1.5 mmol/L (0.5-2.0)
[2023-12-24 20:08] LABS: Alanine Aminotransferase 30 U/L (0-40); Albumin Level 4.5 g/dL (3.5-5.0); Alkaline Phosphatase 80 U/L (39-117); Anion Gap 15 (12-20); Aspartate Amino Transferase 30 U/L (5-37); Bilirubin Total 0.2 mg/dL (0.0-1.0); Blood Urea Nitrogen 8 mg/dL (9-16); C Reactive Protein 0.57 mg/dL (< or = 0.50); Calcium 9.3 mg/dL (8.4-10.2); Carbon Dioxide 26 mmol/L (22-29); Chloride 104 mmol/L (96-108); Creatinine Clr Calc Pharmacy 136.2; Estimated Glomerular Filt Rate > 60; Glucose Random 84 mg/dL (60-115); Potassium 4.5 mmol/L (3.3-5.1); Sodium 140 mmol/L (135-145); Total Protein 7.6 g/dL (6.5-8.0)
[2023-12-24 20:37] LABS: Erythrocyte Sedimentation Rate 2 MM/HR (0-15)
[2023-12-24 20:54] VITALS: BP 111/73; PULSE 76; RESP 14; TEMP 36.8; O2SAT 99
[2023-12-24] MEDS: oxyCODONE HCl Immed Release 5 MG TABLET 10 MG PO (20:55)
== END 2023-12-24 21:01 | disposition home or self-care (01) ==
PROVIDERS: Physician Assistant Medical; Emergency Provider Emergency Medicine Emergency Medical Services; PCP Surgery
DX: K60.5 Anorectal fistula (principal); L03.317 Cellulitis of buttock; L02.31 Cutaneous abscess of buttock; Z79.899 Other long term (current) drug therapy
CPT/HCPCS: 36415; 80053; 83605; 85025; 85652; 86140; 87040; 99283; 99284

== ENCOUNTER 2024-01-11 09:28 | Outpatient (AMB) | payer OTHER, SELFPAY ==
[2024-01-11 09:34] VITALS: BP 139/82; PULSE 76
--- NOTE | 2024-01-11 09:34 | MHC.OFFVIS ---
Intake Vital Signs 01/11/24 09:34 Height 5 ft 7 in BP 139/82 Blood Pressure Location Rt brachial Position Sitting Pulse 76 Intake Visit Reasons: 3 wk follow up Anal fistula (surgery 11/05/22) Intake Note: This patient presents for a three week follow-up assessment for anal fistula. Patient c/o; reports draining, reports pain/discomfort. Speech Communication Professor Required: No Accompanied by: Self / Same As Patient Allergies No Known Allergies Allergy (Verified 01/11/24 09:40) Medication List - Last Reconciled 01/11/24 by Gianluca Almeida MD cefuroxime axetil 250 mg PO BID 7 days clonazepam 1 mg PO DAILY ibuprofen 600 mg PO Q6H PRN lurasidone 20 mg PO BID menthol-zinc oxide 0.44-20.6 % (Calmoseptine) 1 appl topical QID PRN menthol-zinc oxide 0.44-20.6 % (Calmoseptine) 1 appl topical QID PRN oxycodone-acetaminophen 5-325 mg (Percocet) 1 tab PO TID PRN oxycodone-acetaminophen 5-325 mg (Percocet) 1 tab PO Q4-6H PRN quetiapine 0.5 - 2 tabs PO DAILY PRN sertraline 1 tab PO DAILY sertraline 1 tab PO DAILY tramadol 50 mg PO TID PRN tramadol 50 mg PO TID PRN tramadol 50 mg PO Q6H PRN HPI 3 wk follow up Anal fistula (surgery 11/05/22) HPI Details He is here for a follow-up for his anal fistula with a seton in place. He had not been seen in the office for several months last year. He has been getting pain medications because of burning around the area. He denies no new complaints. He says he does notice a little bit of scanty drainage once in a while. [facility] Medical History Panic disorder [episodic paroxysmal anxiety] Back pain Anal fistula Anxiety Surgical History History of surgery (11/05/22) Family History Mother No problems noted. Father No problems noted. Social History Alcohol intake: current Alcohol intake frequency: other Alcohol type: beer Patient Tobacco Use Status: Current everyday Tobacco user Cigarettes Per Day: 6 Review of Systems Const Denies chills and Denies fever(s) Card Denies chest pain, Denies dyspnea and Denies dyspnea on exertion Resp Denies cough, Denies dyspnea and Denies dyspnea on exertion GI Denies hematochezia and Denies change in bowel habits Denies hematuria and Denies difficulty urinating Musc Denies back pain and Denies limited range of motion Neuro Denies focal weakness and Denies convulsions Psych Denies depression and Denies mood swings Physical Exam Vital Signs: Last Vital Signs Pulse 76 01/11/24 09:34 BP 139/82 01/11/24 09:34 Const General: comfortable and no acute distress Resp Effort & Inspection: normal respiratory effort Cardio Rate: regular rate GI Other: Rectal exam - seton in place, no new drainage no induration, no cellulitis, seton is loose around the fistula tract, no perianal lesions or ulcers Palpation (GI): Soft to palpation Assessment & Plan Assessment & Plan (1) Anal fistula: Code(s): K60.3 - Anal fistula Plan: Seton in place. He had missed appointments for several months last year I tightened the seton using a silk 2 0 tie. He looks well overall. He asked for a pain medications as he says this area hurts whenever he is active. I will see him in the office in about a month. Coding Level of Care Code Est Pt Level 3 (49805) Diagnoses Anal fistula K60.3
== END 2024-01-11 09:49 | disposition home or self-care (01) ==
PROVIDERS: PCP Nurse Practitioner Family; Referring Provider Surgery; Visit Provider Surgery
DX: K60.3 Anal fistula (principal)
CPT/HCPCS: 99213

== ENCOUNTER → 2024-01-11 09:28 | Outpatient (BNVA) | payer OTHER, SELFPAY | PROVIDERS: PCP Nurse Practitioner Family; Visit Provider Surgery | DX: K60.3 Anal fistula (principal) | CPT/HCPCS: 99212 ==

== ENCOUNTER 2024-02-02 10:05 | Outpatient (AMB) | payer OTHER, SELFPAY ==
--- NOTE | 2024-02-02 10:32 | A.OFFVIS_ITS ---
Intake Vital Signs 02/02/24 10:42 Height 5 ft 7 in Weight 185 lb BMI 29.0 BP 129/59 L Blood Pressure Location Rt brachial Position Sitting Pulse 85 Intake Visit Reasons: Anal fistula, seton in place, pain Intake Note: This patient presents for a follow-up assessment for seton. Requesting rx pain med refill. Reports started going to gym. Would like to have a normal life. Would like to eventually stop pain meds. Patient c/o; bleeding, pain. Denies constipation. Surgery: 11/05/22 Television Anchor Required: No Accompanied by: Self / Same As Patient Allergies No Known Allergies Allergy (Verified 02/02/24 10:33) Medication List - Last Reconciled 02/02/24 by Gianluca Almeida MD clonazepam 1 mg PO DAILY ibuprofen 600 mg PO Q6H PRN lurasidone 20 mg PO BID menthol-zinc oxide 0.44-20.6 % (Calmoseptine) 1 appl topical QID PRN menthol-zinc oxide 0.44-20.6 % (Calmoseptine) 1 appl topical QID PRN oxycodone-acetaminophen 5-325 mg (Percocet) 1 tab PO TID PRN oxycodone-acetaminophen 5-325 mg (Percocet) 1 tab PO Q4-6H PRN quetiapine 0.5 - 2 tabs PO DAILY PRN HPI Anal fistula, seton in place, pain HPI Details He is here for follow-up for his anal fistula with a seton in place. He describes periodic drainage from the area. He also says she still has some pain especially with ambulation. He denies any new swelling or induration. [facility] Medical History Panic disorder [episodic paroxysmal anxiety] Back pain Anal fistula Anxiety Surgical History History of surgery (11/05/22) Family History Mother No problems noted. Father No problems noted. Social History Alcohol intake: current Alcohol intake frequency: other Alcohol type: beer Patient Tobacco Use Status: Current everyday Tobacco user Cigarettes Per Day: 6 Review of Systems Const Denies chills and Denies fever(s) Card Denies chest pain, Denies dyspnea and Denies dyspnea on exertion Resp Denies cough, Denies dyspnea and Denies dyspnea on exertion GI Reports hematochezia and Denies change in bowel habits Denies hematuria and Denies difficulty urinating Musc Denies back pain and Denies limited range of motion Neuro Denies focal weakness and Denies convulsions Psych Denies depression and Denies mood swings Physical Exam Vital Signs: Last Vital Signs Pulse 85 02/02/24 10:42 BP 129/59 L 02/02/24 10:42 BMI result Body Mass Index 29.0 Const Other: Sitting down on chair General: comfortable and no acute distress Resp Effort & Inspection: normal respiratory effort Cardio Rate: regular rate GI Other: Rectal exam shows the seton to be in place, still tight around the fistula tract, no new induration, no new sinuses, area remains dry Assessment & Plan Assessment & Plan (1) Anal fistula: Code(s): K60.3 - Anal fistula Plan: He has a seton in place at this time. I did not tighten this as this is still snug around the fistula tract I advised him on doing warm soaks and hot Sitz baths. He asked for some pain medications so will provide him a few I will see him in the office next month. Coding Level of Care Code Est Pt Level 2 (25102) Diagnoses Anal fistula K60.3
[2024-02-02 10:42] VITALS: BP 129/59; PULSE 85; BMI 29.0
== END 2024-02-02 11:06 | disposition home or self-care (01) ==
PROVIDERS: PCP Nurse Practitioner Family; Referring Provider Surgery; Visit Provider Surgery
DX: K60.3 Anal fistula (principal)
CPT/HCPCS: 99212

== ENCOUNTER → 2024-02-02 10:05 | Outpatient (BNVA) | payer OTHER, SELFPAY | PROVIDERS: PCP Nurse Practitioner Family; Visit Provider Surgery | DX: K60.3 Anal fistula (principal); Z97.8 Presence of other specified devices | CPT/HCPCS: 99212 ==

== ENCOUNTER 2024-08-08 09:41 | Outpatient (AMB) | payer OTHER, MEDICAID, SELFPAY ==
--- NOTE | 2024-08-08 09:42 | A.OFFVIS_ITS ---
Intake Visit Reasons: Anal fistula, seton in place, pain Intake Note: This patient presents for a follow-up assessment for anal fistula. Pt c/o; reports no complaints. Furnace Combustion Analyst Required: No Accompanied by: Other Relationship Allergies No Known Allergies Allergy (Verified 08/08/24 09:47) Medication List - Last Reconciled 08/08/24 by Gianluca Almeida MD albuterol sulfate 90 mcg/actuation 2 puffs inhalation QID clonazepam 1 mg PO DAILY ibuprofen 600 mg PO Q6H PRN lurasidone 20 mg PO BID lurasidone (Latuda) 40 mg PO DAILY menthol-zinc oxide 0.44-20.6 % (Calmoseptine) 1 appl topical QID PRN menthol-zinc oxide 0.44-20.6 % (Calmoseptine) 1 appl topical QID PRN nicotine 1 patch transdermal DAILY oxycodone-acetaminophen 5-325 mg (Percocet) 1 tab PO Q4-6H PRN oxycodone-acetaminophen 5-325 mg (Percocet) 1 tab PO TID PRN quetiapine 0.5 - 2 tabs PO DAILY PRN thiamine HCl (vitamin B1) 100 mg PO DAILY HPI HPI Anal fistula, seton in place, pain: Details: He is here for follow-up for his anal fistula with a seton in place. I have not seen him in a few months because he has been in a treatment facility for addiction. He denies any new complaints at this time. [facility] Medical History Panic disorder [episodic paroxysmal anxiety] Back pain Anal fistula Anxiety Surgical History History of surgery (11/05/22) Family History Mother No problems noted. Father No problems noted. Social History Alcohol intake: current Alcohol intake frequency: other Alcohol type: beer Patient Tobacco Use Status: Current everyday Tobacco user Cigarettes Per Day: 6 Review of Systems Const Denies chills and Denies fever(s) Card Denies chest pain Resp Denies cough GI Denies abdominal pain Physical Exam Const General: comfortable and no acute distress Resp Effort & Inspection: normal respiratory effort Cardio Rate: regular rate GI Other: Rectal exam shows the seton in place on the right perianal area, loose around the remaining fistula tract, no new induration, no new sinus Assessment & Plan Assessment & Plan (1) Anal fistula: Code(s): K60.3 - Anal fistula Category: Medical Plan: Seton in place. I tightened the seton using a silk 2-0 tie to make this snug around the remaining fistula tract. The fistula tract is significant shorter. I will see him again in the office in 1 month. I have instructed the treatment facility with regards to this follow- up. He is doing well overall. Coding Level of Care Code Est Pt Level 3 (24749) Diagnoses Anal fistula K60.3
== END 2024-08-08 09:55 | disposition home or self-care (01) ==
PROVIDERS: PCP Nurse Practitioner Family; Visit Provider Surgery
DX: K60.3 Anal fistula (principal)
CPT/HCPCS: 99213

== ENCOUNTER → 2024-08-08 09:41 | Outpatient (BNVA) | payer OTHER, MEDICAID, SELFPAY | PROVIDERS: PCP Nurse Practitioner Family; Visit Provider Surgery | DX: K60.3 Anal fistula (principal) | CPT/HCPCS: 99212 ==

== ENCOUNTER 2024-09-10 13:43 | Outpatient (AMB) | payer MEDICAID, SELFPAY ==
--- NOTE | 2024-09-10 13:52 | A.OFFVIS_ITS ---
Vital Signs 09/10/24 13:54 Height 5 ft 7 in Weight 166 lb 2 oz BMI 26.0 BP 129/58 L Blood Pressure Location Lt brachial Position Sitting Pulse 90 Intake Visit Reasons: 1 month follow up seton Intake Note: This patient presents for 1 month follow up seton. Pt c/o: admits to increase pain and rectal bleeding Brand Strategist Required: No Accompanied by: Self / Same As Patient Allergies No Known Allergies Allergy (Verified 09/10/24 13:53) Medication List - Last Reconciled 09/10/24 by Gianluca Almeida MD albuterol sulfate 90 mcg/actuation 2 puffs inhalation QID clonazepam 1 mg PO DAILY ibuprofen 600 mg PO Q6H PRN lurasidone 20 mg PO BID lurasidone (Latuda) 40 mg PO DAILY menthol-zinc oxide 0.44-20.6 % (Calmoseptine) 1 appl topical QID PRN menthol-zinc oxide 0.44-20.6 % (Calmoseptine) 1 appl topical QID PRN nicotine 1 patch transdermal DAILY oxycodone-acetaminophen 5-325 mg (Percocet) 1 tab PO Q4-6H PRN oxycodone-acetaminophen 5-325 mg (Percocet) 1 tab PO TID PRN quetiapine 0.5 - 2 tabs PO DAILY PRN thiamine HCl (vitamin B1) 100 mg PO DAILY HPI HPI 1 month follow up seton: Details: He is here for follow-up for his anal fistula with a seton in place. I had started seeing him again last month after he has been lost to follow up this year. He had been in a treatment facility and not long for alcohol and drug abuse. He denies any new complaints . He does admit to pain on the fistula site with a seton in place especially after this is tightened. [facility] Medical History Panic disorder [episodic paroxysmal anxiety] Back pain Anal fistula Anxiety Surgical History History of surgery (11/05/22) Family History Mother No problems noted. Father No problems noted. Social History Alcohol intake: current Alcohol intake frequency: other Alcohol type: beer Patient Tobacco Use Status: Current everyday Tobacco user Cigarettes Per Day: 6 Review of Systems Const Denies chills and Denies fever(s) Card Denies chest pain at rest Resp Denies cough GI Denies abdominal pain Physical Exam Const General: comfortable and no acute distress Resp Effort & Inspection: normal respiratory effort GI Other: Rectal exam shows the seton to be in place, remaining fistula tract is shorter and the seton appears loose; no new sinuses or any induration. There was note of some superficial skin breakdown from where the seton rubs on the skin Assessment & Plan Assessment & Plan (1) Anal fistula: Code(s): K60.3 - Anal fistula Category: Medical Plan: Seton in place. I tightened the seton with a silk 3-0 tie. I will see him again in the office in about a month. He asked for oxycodone for pain p.r.n.. I told him that we will await for instructions from his treatment facility with regards to this. Coding Level of Care Code Est Pt Level 3 (56312) Diagnoses Anal fistula K60.3
[2024-09-10 13:54] VITALS: BP 129/58; PULSE 90; BMI 26.0
== END 2024-09-10 14:01 | disposition home or self-care (01) ==
PROVIDERS: PCP Nurse Practitioner Family; Visit Provider Surgery
DX: K60.30 Anal fistula, unspecified (principal)
CPT/HCPCS: 99213

== ENCOUNTER → 2024-09-10 13:43 | Outpatient (BNVA) | payer MEDICAID, SELFPAY | PROVIDERS: PCP Nurse Practitioner Family; Visit Provider Surgery | DX: K60.30 Anal fistula, unspecified (principal); Z96.89 Presence of other specified functional implants | CPT/HCPCS: 99212 ==

== ENCOUNTER 2024-10-08 13:35 | Outpatient (AMB) | payer MEDICAID, SELFPAY ==
--- NOTE | 2024-10-08 13:40 | A.OFFVIS_ITS ---
Vital Signs 10/08/24 13:52 Height 5 ft 7 in Weight 166 lb 1.999 oz BMI 26.0 Intake Visit Reasons: 1 month follow up seton Intake Note: This patient presents for one month follow up seton. Pt c/o; reports pain, reports bleeding, requesting Rx refill for pain meds. Admissions Advisor Required: No Accompanied by: electronic intelligence officer's Allergies No Known Allergies Allergy (Verified 10/08/24 13:54) Medication List - Last Reconciled 10/08/24 by Gianluca Almeida MD albuterol sulfate 90 mcg/actuation 2 puffs inhalation QID clonazepam 1 mg PO DAILY ibuprofen 600 mg PO Q6H PRN lurasidone 20 mg PO BID lurasidone (Latuda) 40 mg PO DAILY menthol-zinc oxide 0.44-20.6 % (Calmoseptine) 1 appl topical QID PRN menthol-zinc oxide 0.44-20.6 % (Calmoseptine) 1 appl topical QID PRN menthol-zinc oxide 0.44-20.6 % (Calmoseptine) 1 appl topical QID PRN nicotine 1 patch transdermal DAILY oxycodone-acetaminophen 5-325 mg (Percocet) 1 tab PO Q4-6H PRN oxycodone-acetaminophen 5-325 mg (Percocet) 1 tab PO TID PRN quetiapine 0.5 - 2 tabs PO DAILY PRN thiamine HCl (vitamin B1) 100 mg PO DAILY HPI HPI 1 month follow up seton: Details: He is here for a follow-up for his anal fistula with a seton in place. He describes burning around his anus. This is no significant drainage anymore from his fistula with a seton in place He is still in a facility for addiction. He says he is scheduled to be discharged from the next month. [facility] Medical History Panic disorder [episodic paroxysmal anxiety] Back pain Anal fistula Anxiety Surgical History History of surgery (11/05/22) Family History Mother No problems noted. Father No problems noted. Social History Alcohol intake: current Alcohol intake frequency: other Alcohol type: beer Patient Tobacco Use Status: Current everyday Tobacco user Cigarettes Per Day: 6 Review of Systems Const Denies chills and Denies fever(s) Card Denies chest pain, Denies dyspnea and Denies dyspnea on exertion Resp Denies cough, Denies dyspnea and Denies dyspnea on exertion GI Denies hematochezia and Denies change in bowel habits Denies hematuria and Denies difficulty urinating Musc Denies back pain and Denies limited range of motion Neuro Denies focal weakness and Denies convulsions Psych Denies depression and Denies mood swings Physical Exam Vital Signs: BMI result Body Mass Index 26.0 Const General: comfortable and no acute distress Resp Effort & Inspection: normal respiratory effort Cardio Rate: regular rate GI Other: Rectal exam shows seton to be in place, he was short fistula tract, seton remains tight, note of perianal skin breakdown likely from friction with the seton Assessment & Plan Assessment & Plan (1) Anal fistula: Code(s): K60.3 - Anal fistula Category: Medical Plan: Seton in place. The seton remains tight so I did not tighten this. I will prescribe him Calmoseptine for the perianal irritation. I will see him again in the office in a month I advised him on good perianal hygiene as well. Medications: New menthol-zinc oxide 0.44-20.6 % (Calmoseptine) 1 appl topical QID PRN 113 grams 0RF skin irritation Coding Level of Care Code Est Pt Level 2 (41020) Diagnoses Anal fistula K60.3
[2024-10-08 13:52] VITALS: BMI 26.0
== END 2024-10-08 14:13 | disposition home or self-care (01) ==
PROVIDERS: PCP Nurse Practitioner Family; Visit Provider Surgery
DX: K60.30 Anal fistula, unspecified (principal)
CPT/HCPCS: 99212

== ENCOUNTER → 2024-10-08 13:35 | Outpatient (BNVA) | payer MEDICAID, SELFPAY | PROVIDERS: PCP Nurse Practitioner Family; Visit Provider Surgery | DX: K60.30 Anal fistula, unspecified (principal) | CPT/HCPCS: 99212 ==

== ENCOUNTER 2024-11-26 14:37 | Outpatient (AMB) | payer MEDICAID, SELFPAY ==
[2024-11-26 14:45] VITALS: BP 136/90; PULSE 98; BMI 25.5
--- NOTE | 2024-11-26 14:45 | MHC.OFFVIS ---
Vital Signs 11/26/24 14:45 Height 5 ft 7 in Weight 163 lb BMI 25.5 BP 136/90 H Blood Pressure Location Rt brachial Position Sitting Pulse 98 Intake Visit Reasons: one month follow-up seton Intake Note: This patient presents for one month follow-up seton. Pt c/o; reports no complaints at this time. Director Funds Development Required: No Accompanied by: Self / Same As Patient Allergies No Known Allergies Allergy (Verified 11/26/24 14:45) HPI HPI one month follow-up seton: Details: He is here for a follow-up for his anal fistula with a seton in place. He describes burning around his anus. This is no significant drainage anymore from his fistula with a seton in place. He is out of the facility for alcohol addiction. 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 [facility] Medical History Panic disorder [episodic paroxysmal anxiety] Back pain Anal fistula Anxiety Surgical History History of surgery (11/05/22) Family History Mother No problems noted. Father No problems noted. Social History Alcohol intake: current Alcohol intake frequency: other Alcohol type: beer Patient Tobacco Use Status: Current everyday Tobacco user Cigarettes Per Day: 6 Review of Systems Const Denies chills and Denies fever(s) Card Denies chest pain Resp Denies cough GI Denies abdominal pain Physical Exam Vital Signs: Last Vital Signs Pulse 98 11/26/24 14:45 BP 136/90 H 11/26/24 14:45 BMI result Body Mass Index 25.5 Const General: comfortable and no acute distress Resp Effort & Inspection: normal respiratory effort GI Other: Rectal exam shows the seton to be in place on the right side with a shorter fistula tract. The seton is loose around the remaining fistula tract. There were no other new sinuses or induration Assessment & Plan Assessment & Plan (1) Anal fistula: Code(s): K60.3 - Anal fistula Category: Medical Plan: With a seton in place. I tightened the seton around the fistula tract using a silk 2-0 tie. I will see him again in the office in about a month He is also asking for a refill for his oxycodone because of pain especially after tightening. Coding Level of Care Code Est Pt Level 3 (56129) Diagnoses Anal fistula K60.3
== END 2024-11-26 15:05 | disposition home or self-care (01) ==
PROVIDERS: PCP Nurse Practitioner Family; Visit Provider Surgery
DX: K60.30 Anal fistula, unspecified (principal)
CPT/HCPCS: 99213

== ENCOUNTER → 2024-11-26 14:37 | Outpatient (BNVA) | payer MEDICAID, SELFPAY | PROVIDERS: PCP Nurse Practitioner Family; Visit Provider Surgery | DX: K60.30 Anal fistula, unspecified (principal) | CPT/HCPCS: 99212 ==

== ENCOUNTER 2025-01-14 14:27 | Outpatient (AMB) | payer MEDICAID, SELFPAY ==
--- NOTE | 2025-01-14 14:30 | MHC.OFFVIS ---
Vital Signs 01/14/25 14:34 Height 5 ft 7 in BMI Reason not done Patient refused/unable BP 126/59 L Blood Pressure Location Rt brachial Position Sitting Pulse 73 Intake Visit Reasons: One month follow-up seton Intake Note: This patient presents for one month follow-up for seton. Pt c/o; no complaints. Early Childhood Education Worker Required: No Accompanied by: Self / Same As Patient Allergies No Known Allergies Allergy (Verified 01/14/25 14:35) Medication List - Last Reconciled 01/14/25 by Gianluca Almeida MD albuterol sulfate 90 mcg/actuation 2 puffs inhalation QID clonazepam 1 mg PO DAILY ibuprofen 600 mg PO Q6H PRN lurasidone 20 mg PO BID lurasidone (Latuda) 40 mg PO DAILY menthol-zinc oxide 0.44-20.6 % (Calmoseptine) 1 appl topical QID PRN menthol-zinc oxide 0.44-20.6 % (Calmoseptine) 1 appl topical QID PRN menthol-zinc oxide 0.44-20.6 % (Calmoseptine) 1 appl topical QID PRN nicotine 1 patch transdermal DAILY oxycodone-acetaminophen 5-325 mg 1 tab PO BID PRN oxycodone-acetaminophen 5-325 mg (Percocet) 1 tab PO Q4-6H PRN oxycodone-acetaminophen 5-325 mg (Percocet) 1 tab PO TID PRN quetiapine 0.5 - 2 tabs PO DAILY PRN thiamine HCl (vitamin B1) 100 mg PO DAILY HPI HPI One month follow-up seton: Details: He is here for follow-up for his anal fistula with a seton in place. He denies any new complaints. He admits to some pain on the fistula site. He has scanty drainage. [facility] Medical History Panic disorder [episodic paroxysmal anxiety] Back pain Anal fistula Anxiety Surgical History History of surgery (11/05/22) Family History Mother No problems noted. Father No problems noted. Social History Alcohol intake: current Alcohol intake frequency: other Alcohol type: beer Patient Tobacco Use Status: Current everyday Tobacco user Cigarettes Per Day: 6 Review of Systems Const Denies chills and Denies fever(s) Card Denies chest pain Resp Denies cough GI Denies abdominal pain Physical Exam Vital Signs: Last Vital Signs Pulse 73 01/14/25 14:34 BP 126/59 L 01/14/25 14:34 Const General: comfortable and no acute distress Resp Effort & Inspection: normal respiratory effort Cardio Rate: regular rate GI Other: Rectal exam shows the seton to be in place, with a very short residual fistula tract, no new induration, no new sinuses Palpation (GI): Soft to palpation Assessment & Plan Assessment & Plan (1) Anal fistula: Code(s): K60.3 - Anal fistula Category: Medical Plan: Seton in place. I tightened the seton with a silk 2-0 tie This appears to be very snug around the remaining short fistula tract I will see him in the office next month. We may be able to just pull out the seton he then if this has not fallen out yet. He asked for some pain medications. Coding Level of Care Code Est Pt Level 3 (18056) Diagnoses Anal fistula K60.3
[2025-01-14 14:34] VITALS: BP 126/59; PULSE 73
== END 2025-01-14 14:52 | disposition home or self-care (01) ==
PROVIDERS: PCP Nurse Practitioner Family; Visit Provider Surgery
DX: K60.30 Anal fistula, unspecified (principal)
CPT/HCPCS: 99213

== ENCOUNTER → 2025-01-14 14:27 | Outpatient (BNVA) | payer MEDICAID, SELFPAY | PROVIDERS: PCP Nurse Practitioner Family; Visit Provider Surgery | DX: K60.30 Anal fistula, unspecified (principal) | CPT/HCPCS: 99212 ==

== ENCOUNTER 2025-04-11 12:39 | Outpatient (AMB) | payer OTHER, MEDICAID, SELFPAY ==
--- NOTE | 2025-04-11 12:41 | A.OFFVIS_ITS ---
Vital Signs 04/11/25 12:46 Height 5 ft 7 in Weight 161 lb BMI 25.2 BP 144/68 H Blood Pressure Location Rt brachial Position Sitting Pulse 89 Intake Visit Reasons: s/p seton 11/11 Intake Note: Patient scheduled today for follow up seton. Patient c/o: reports no changes in medical hx since last visit in December. Surgery: unroofing of anal fistula, seton placement~ 11-05-2022 Product Steward Required: No Accompanied by: Self / Same As Patient Allergies No Known Allergies Allergy (Verified 04/11/25 12:47) Medication List - Last Reconciled 04/11/25 by Gianluca Almeida MD albuterol sulfate 90 mcg/actuation 2 puffs inhalation QID clonazepam 1 mg PO DAILY ibuprofen 600 mg PO Q6H PRN ibuprofen 600 mg PO Q8H PRN lurasidone 20 mg PO BID lurasidone (Latuda) 40 mg PO DAILY menthol-zinc oxide 0.44-20.6 % (Calmoseptine) 1 appl topical QID PRN menthol-zinc oxide 0.44-20.6 % (Calmoseptine) 1 appl topical QID PRN menthol-zinc oxide 0.44-20.6 % (Calmoseptine) 1 appl topical QID PRN nicotine 1 patch transdermal DAILY oxycodone-acetaminophen 5-325 mg 1 tab PO BID PRN oxycodone-acetaminophen 5-325 mg (Percocet) 1 tab PO Q4-6H PRN oxycodone-acetaminophen 5-325 mg (Percocet) 1 tab PO TID PRN quetiapine 0.5 - 2 tabs PO DAILY PRN thiamine HCl (vitamin B1) 100 mg PO DAILY tramadol 50 mg PO TID PRN HPI HPI s/p seton 11/11: Details: He is here for follow-up for his anal fistula with a seton in place. He does not notice any significant discharge. He does describe some pain with the seton. [facility] Medical History Panic disorder [episodic paroxysmal anxiety] Back pain Anal fistula Anxiety Surgical History History of surgery (11/05/22) Family History Mother No problems noted. Father No problems noted. Social History Alcohol intake: current Alcohol intake frequency: other Alcohol type: beer Patient Tobacco Use Status: Current everyday Tobacco user Cigarettes Per Day: 6 Review of Systems Const Denies chills and Denies fever(s) Card Denies chest pain, Denies dyspnea and Denies dyspnea on exertion Resp Denies cough, Denies dyspnea and Denies dyspnea on exertion GI Denies hematochezia and Denies change in bowel habits Denies hematuria and Denies difficulty urinating Musc Denies back pain and Denies limited range of motion Neuro Denies focal weakness and Denies convulsions Psych Denies depression and Denies mood swings Physical Exam Vital Signs: Last Vital Signs Pulse 89 04/11/25 12:46 BP 144/68 H 04/11/25 12:46 BMI result Body Mass Index 25.2 Const General: comfortable and no acute distress Resp Effort & Inspection: normal respiratory effort GI Other: Seton in place with a very short residual fistula tract on the right, no new sinuses Assessment & Plan Assessment & Plan (1) Anal fistula: Code(s): K60.3 - Anal fistula Category: Medical Plan: Seton in place. I was able to tighten the seton some more with a silk 2-0 tie. I am hopeful that this seton we will cut through completely. Otherwise I will see him again in the office next month. We may be able to remove the seton at that time. He also asked for additional pain medications for now Coding Level of Care Code Est Pt Level 2 (93393) Diagnoses Anal fistula K60.3
--- OUTSIDE RECORDS SUMMARY | 2025-04-11 12:42 | XMS_ITS | Clinical Summary ---
Author Organization [facility] Address [address] [place] [address] Phone Care Team Providers Care Research Quality Assurance Analyst Name Role Phone Physician, No Pcp Primary Care Provider Unavaila ble Allergies No known active allergies Encounters Date Type Department Care Team Description 01/30/2025 10:26 PM EDT - 01/31/2025 6:34 AM EDT Emergency [facility] [address] [place] [address] David Messina MD Alcohol intoxication with delirium (CMS/HCC V24) (Primary Dx) Discharge Disposition: Home or Self Care from Last 3 Months Social History Tobacco Use Types Packs/Day Years Used Date Smoking Tobacco: Never Assessed Sex and Gender Information Value Date Recorded Sex Assigned at Not on file Legal Sex Male 9:06 PM EST Gender Identity Not on file Sexual Orientation Not on file Last Filed Vital Signs Vital Sign Reading Time Taken Comments Blood Pressure 104/87 01/31/2025 6:12 AM EDT Pulse 80 01/31/2025 6:12 AM EDT Temperature 36.6 ??C (97.9 ??F) 01/31/2025 6:12 AM ED T Respiratory Rate 16 01/31/2025 6:12 AM EDT Oxygen Saturation 98% 01/31/2025 6:12 AM EDT Inhaled Oxygen Concentration - - Weight 81.6 kg (180 lb) 01/30/2025 10:31 PM EDT Height 170.2 cm (5' 7 ) 01/30/2025 10:31 PM EDT Body Mass Index 28.19 01/30/2025 10:31 PM EDT Plan of Treatment Health Maintenance Due Date Last Done Comments DTaP,Tdap,and Td Vaccines (1 - Tdap) 2016 Hepatitis A Vaccines (1 of 2 - Risk 2-dose series) 2016 Hepatitis B Vaccines (1 of 3 - 19+ 3-dose series) 2016 Depression Screening 12/16/2023 HIV Screening 12/16/2023 Hepatitis C Screening 12/16/2023 Social Influencers of Health Screening 12/16/2023 COVID-19 Vaccine (1 - 2023-2 5 season) 2024 Influenza Vaccine (Season Ended) 2025 HIB Vaccines Aged Out No longer eligi ble based on patient's age to complete this topic HPV Vaccines Aged Out No longer eligi ble based on patient's age to complete this topic IPV Vaccines Aged Out No longer eligi ble based on patient's age to complete this topic MMR Vaccines Aged Out No longer eligi ble based on patient's age to complete this topic Meningococcal ACWY Vaccine Aged Out N o longer eligible based on patient's age to complete this topic Meningococcal B Vaccine Aged Out No l onger eligible based on patient's age to complete this topic Pneumococcal Vaccine: Pediat rics (0 to 5 Years) and At-Risk Patients (6 to 64 Years) Aged Out No longer eligible b ased on patient's age to complete this topic RSV Immunization Patients Un kathya 20 months Aged Out No longer eligible b ased on patient's age to complete this topic Varicella Vaccines Aged Out No longer eligible based on patient's age to complete this topic Procedures Procedure Name Priority Date/Time Associated Diagnosis Comments CT CERVICAL SPINE WO CONTRAST STAT 01/31/2025 12:[address] HEAD WO CONTRAST STAT 01/31/2025 1 2:48 AM EDT ECG 12-LEAD STAT 01/30/2025 11:59 PM EDT CBC WITH AUTO DIFFERENTIAL STAT 01/30/2025 11:50 PM EDT SALICYLATE LEVEL STAT 01/30/2025 11:5 0 PM EDT ACETAMINOPHEN LEVEL STAT 01/30/2025 1 1:50 PM EDT ETHANOL STAT 01/30/2025 11:50 PM EDT COMPREHENSIVE METABOLIC PANEL STAT 01/30/2025 11:50 PM EDT CBC AND DIFFERENTIAL STAT 01/30/2025 11:50 PM EDT METHADONE SCREEN, URINE STAT 01/30/2025 11:30 PM EDT BUPRENORPHINE SCREEN, URINE STAT 01/30/2025 11:30 PM EDT PHENCYCLIDINE, URINE STAT 01/30/2025 11:30 PM EDT DRUG ABUSE SCREEN 8A PANEL, URINE STAT 01/30/2025 11:30 PM EDT POCT GLUCOSE BLOOD Routine 01/30/2025 10 :38 PM EDT from Last 3 Months Results * CT Cervical Spine wo Contrast (01/31/2025 12:48 AM EDT) Anatomical Region Laterality Modality Spine, C-spine Computed Tomogra phy 01/31/2025 1:59 AM EDT Impressions 01/31/2025 1:59 AM EDT No acute findings. This document has been electronically signed by: Betty De MD on 01/31/2025 01:59:30 Narrative 01/31/2025 1:59 AM EDT INDICATION: Neck trauma, intoxicated or obtunded (Age >= 16y) CT cervical spine without contrast Comparison: None Findings: Vertebral alignment is within normal limits. No acute fractures or dislocations. Visualized intracranial contents are unremarkable. No cervical fluid collections or masses. Lung apices are clear. Procedure Note Betty De MD - 01/31/2025 INDICATION: Neck trauma, intoxicated or obtunded (Age >= 16y) CT cervical spine without contrast Comparison: None Findings: Vertebral alignment is within normal limits. No acute fractures or dislocations. Visualized intracranial contents are unremarkable. No cervical fluid collections or masses. Lung apices are clear. IMPRESSION: No acute findings. This document has been electronically signed by: Betty De MD on 01/31/2025 01:59:30 David Messina MD [facility] PROCEDURES Final Result * CT Head wo Contrast (01/31/2025 12:48 AM EDT) Anatomical Region Laterality Modality Head and Neck Computed Tomogra phy 01/31/2025 1:59 AM EDT Impressions 01/31/2025 1:59 AM EDT 1. No acute intracranial findings. This document has been electronically signed by: Betty De MD on 01/31/2025 01:59:21 Narrative 01/31/2025 1:59 AM EDT INDICATION: Head trauma, abnormal mental status (Age 19-64y) CT head without contrast Comparison: None Findings: No intra-axial mass, midline shift, hydrocephalus, or acute hemorrhage. Zhang-white matter differentiation is preserved. There is no sinus or mastoid fluid. The orbits are unremarkable. No skull fracture. Procedure Note Betty De MD - 01/31/2025 INDICATION: Head trauma, abnormal mental status (Age 19-64y) CT head without contrast Comparison: None Findings: No intra-axial mass, midline shift, hydrocephalus, or acute hemorrhage. Zhang-white matter differentiation is preserved. There is no sinus or mastoid fluid. The orbits are unremarkable. No skull fracture. IMPRESSION: 1. No acute intracranial findings. This document has been electronically signed by: Betty De MD on 01/31/2025 01:59:[address] PROCEDURES Final Result * ECG 12 lead (01/30/2025 11:59 PM EDT) Ventricular Rate ECG 82 BPM GEMUSE Atrial Rate 82 BPM GEMUSE P-R Interval 142 ms GEMUSE QRS Duration 88 ms GEMUSE Q-T Interval 374 ms GEMUSE QTc 436 ms GEMUSE P Wave [place] 37 degrees GEMUSE R [place] 61 degrees GEMUSE T [place] 39 degrees GEMUSE ECG Interpretation Normal sinus rhythm Early repolarization Normal ECG No previous ECGs available Confirmed by Yanira RHODES JOHN ([id number]) on 02/13/2025 8:01:29 AM GEMUSE 01/30/2025 11:5 9 PM EDT 02/13/2025 8:01 AM EDT us Scot A Siddharth JAY ECG ORDERABLES Final Result GEMUSE * CBC auto differential (01/30/2025 11:50 PM EDT) WBC 8.3 4.8 - 10.8 K/mcL LAB [facility] RBC 5.20 4.50 - 5.50 M/mcL LAB HEMETOLOGY METHOD 01/31/2025 12:[address] [facility] Hemoglobin 15.4 13.5 - 17.5 g/dL LAB HEMETOLOGY METHOD 01/31/2025 12:[address] [facility] Hematocrit 44.8 42.0 - 54.0 % LAB HEMETOLOGY METHOD 01/31/2025 12:[address] [facility] MCV 86.0 79.0 - 98.0 FL LAB HEMETOLOGY METHOD 01/31/2025 12:[address] [facility] MCH 29.6 27.0 - 32.0 pcg LAB HEMETOLOGY METHOD 01/31/2025 12:[address] [facility] MCHC 34.4 32.0 - 37.0 g/dL LAB HEMETOLOGY METHOD 01/31/2025 12:[address] [facility] RDW 12.3 11.0 - 15.0 % LAB HEMETOLOGY METHOD 01/31/2025 12:[address] [facility] Platelets 309 130 - 400 K/mcL LAB HEMETOLOGY METHOD 01/31/2025 12:[address] [facility] MPV 9.5 7.0 - 11.0 FL LAB HEMETOLOGY METHOD 01/31/2025 12:[address] [facility] NRBC 0.0 <1.0 % LAB HEMETOLOGY METHOD 01/31/2025 12:[address] [facility] NRBC Absolute 0.00 <0.10 K/mcL LAB HEMETOLOGY METHOD 01/31/2025 12:[address] [facility] Neutrophils Relative 61.5 % LAB HEMETOLOGY METHOD 01/31/2025 12:[address] [facility] Lymphocytes Relative 33.3 % LAB HEMETOLOGY METHOD 01/31/2025 12:[address] [facility] Monocytes Relative 4.4 % LAB HEMETOLOGY METHOD 01/31/2025 12:[address] [facility] Eosinophils Relative 0.2 % LAB HEMETOLOGY METHOD 01/31/2025 12:[address] [facility] Basophils Relative 0.4 % LAB HEMETOLOGY METHOD 01/31/2025 12:[address] [facility] Immature Granulocytes Relative 0.2 % LAB HEMETOLOGY METHOD 01/31/2025 12:[address] [facility] Neutrophils Absolute 5.09 1.50 - 7.00 K/mcL LAB HEMETOLOGY METHOD 01/31/2025 12:[address] [facility] Lymphocytes Absolute 2.75 1.00 - 5.00 K/mcL LAB HEMETOLOGY METHOD 01/31/2025 12:[address] [facility] Monocytes Absolute 0.36 0.20 - 1.00 K/mcL LAB HEMETOLOGY METHOD 01/31/2025 12:[address] [facility] Eosinophils Absolute 0.02 0.00 - 0.50 K/mcL LAB HEMETOLOGY METHOD 01/31/2025 12:04 AM EDT [facility] Basophils Absolute 0.03 0.00 - 0.20 K/mcL LAB HEMETOLOGY METHOD 01/31/2025 12:04 AM EDT [facility] Immature Granulocytes Absolute 0.02 0.00 - 0.03 K/mcL LAB HEMETOLOGY METHOD 01/31/2025 12:04 AM EDT [facility] Blood Venous blood specimen / Unknown Venipuncture / Unknown 01/30/2025 11:50 PM EDT 01/30/2025 11:55 PM EDT us David Messina MD LAB BLOOD ORDERABLES Final Resu lt Performing Organization Address [facility]/ZIP Co de Phone Number [facility] [address] [place] [address], [place] [phone] * (ABNORMAL) Ethanol (01/30/2025 11:50 PM EDT) Ethanol Level 279(H) 0 - 10 mg/dL LAB CHEMISTRY METHOD 01/31/2025 12:37 AM EDT [facility] Blood Venous blood specimen / Unknown Venipuncture / Unknown 01/30/2025 11:50 PM EDT 01/30/2025 11:55 PM EDT us David Messina MD LAB BLOOD ORDERABLES Final Resu lt [facility] [address] [place] [address], [place] [phone] * (ABNORMAL) Acetaminophen level (01/30/2025 11:50 PM EDT) Acetaminophen Level <2.0(L) 10.0 - 30.0 mcg/mL LAB CHEMISTRY METHOD 01/31/2025 12:45 AM EDT [facility] Blood Venous blood specimen / Unknown Venipuncture / Unknown 01/30/2025 11:50 PM EDT 01/30/2025 11:55 PM EDT us David Messina MD LAB BLOOD ORDERABLES Final Resu lt Performing Organization Address [facility]/ZIP Co de Phone Number [facility] [address] [place] [address], [place] [phone] * (ABNORMAL) Salicylate level (01/30/2025 11:50 PM EDT) Salicylate Level <1.7(L) 2.0 - 29.0 mg/dL LAB CHEMISTRY METHOD 01/31/2025 12:37 AM EDT [facility] Blood Venous blood specimen / Unknown Venipuncture / Unknown 01/30/2025 11:50 PM EDT 01/30/2025 11:55 PM EDT us David Messina MD LAB BLOOD ORDERABLES Final Resu lt Performing Organization Address [facility] Co de Phone Number [facility] [address] [place] [address], [place] [phone] * (ABNORMAL) Comprehensive metabolic panel (01/30/2025 11:50 PM EDT) Sodium 145 133 - 145 mmol/L LAB CHEMISTRY METHOD 01/31/2025 12:38 AM EDT [facility] Potassium 3.8 3.5 - 5.5 mmol/L LAB CHEMISTRY METHOD 01/31/2025 12:38 AM T [facility] Chloride 107 96 - 110 mmol/L LAB CHEMISTRY METHOD 01/31/2025 12:38 AM EDT [facility] CO2 27 21 - 32 mmol/L LAB CHEMISTRY METHOD 01/31/2025 12:38 AM T [facility] Anion Gap 11 3 - 11 LAB CHEMISTRY METHOD 01/31/2025 12:38 AM EDT [facility] Glucose 88 70 - 100 mg/dL LAB CHEMISTRY METHOD 01/31/2025 12:[address] [facility] BUN 4(L) 5 - 25 mg/dL LAB CHEMISTRY METHOD 01/31/2025 12:[address] [facility] Creatinine 0.86 0.70 - 1.30 mg/dL LAB CHEMISTRY METHOD 01/31/2025 12:[address] [facility] eGFR 122 >=60 mL/min/1. 73m2 LAB CHEMISTRY METHOD 01/31/2025 12:[address] [facility] Comment:Calculation based on the??Chronic Kidney Disease Epidemiology Collaboration (CKD-EPI) equation refit??without adjustment for race. BUN/Creatinine Ratio 4.7 LAB CHEMISTRY METHOD 01/31/2025 12:[address] [facility] Calcium 9.4 8.5 - 10.5 mg/dL LAB CHEMISTRY METHOD 01/31/2025 12:[address] [facility] AST (SGOT) 19 10 - 42 unit/L LAB CHEMISTRY METHOD 01/31/2025 12:[address] [facility] ALT (SGPT) 23 10 - 60 unit/L LAB CHEMISTRY METHOD 01/31/2025 12:[address] [facility] Alkaline Phosphatase 88 42 - 121 unit/L LAB CHEMISTRY METHOD 01/31/2025 12:[address] [facility] Total Protein 7.8 6.0 - 8.0 g/dL LAB CHEMISTRY METHOD 01/31/2025 12:[address] [facility] Albumin 4.5 3.2 - 5.0 g/dL LAB CHEMISTRY METHOD 01/31/2025 12:[address] [facility] Total Bilirubin 0.3 0.0 - 1.4 mg/dL LAB CHEMISTRY METHOD 01/31/2025 12:[address] [facility] Blood Venous blood specimen / Unknown Venipuncture / Unknown 01/30/2025 11:50 PM EDT 01/30/2025 11:55 PM EDT us David Messina MD LAB BLOOD ORDERABLES Final Resu lt [facility] [address] [place] [address], [place] [phone] * Drug abuse screen 8a panel, urine (01/30/2025 11:30 PM EDT) Amphetamine Screen, Ur Negative Negative LAB CHEMISTRY METHOD 01/31/2025 12:34 AM EDT [facility] Comment:Certain OTC medicati ons containing ephedrine, phenylephrine, pseudoephedrine and phenylpropanolamine can cause false positive results. Barbiturate Screen, Ur Negative Negative LAB CHEMISTRY METHOD 01/31/2025 12:[address] [facility] Benzodiazepine Screen, Ur Negative Negative LAB CHEMISTRY METHOD 01/31/2025 12:[address] [facility] Cocaine Screen, Ur Negative Negative LAB CHEMISTRY METHOD 01/31/2025 12:[address] [facility] Opiate Screen, Ur Negative Negative LAB CHEMISTRY METHOD 01/31/2025 12:[address] [facility] Cannabinoid (THC) Screen, Ur Negative Negative LAB CHEMISTRY METHOD 01/31/2025 12:34 AM T [facility] Comment:Specimens from patie nts taking pantoprazole sodium (Protonix) have been shown to produce false positive results. Oxycodone Screen, Ur Negative Negative LAB CHEMISTRY METHOD 01/31/2025 12:34 AM T [facility] Fentanyl, Ur Negative Negative LAB CHEMISTRY METHOD 01/31/2025 12:[address] [facility] Urine Urine specimen obtained by clean catch procedure / Unknown Non-blood Collection / Unknown 01/30/2025 11:30 PM EDT 01/30/2025 11:57 PM EDT Narrative [facility] - 01/31/2025 12:34 AM EDT Assay cutoffs: Amphetamines ? 1000 ng/mL Barbiturates ?200 ng/mL Benzodiazepines ?? 200 ng/mL Cocaine ? 300 ng/mL Fentanyl ?1 ng/mL Opiates ? 300 ng/mL Oxycodone ? 100 ng/mL THC ?50 ng/mL Semi-quantitative assay for screening purposes only. Unconfirmed screening result should not be used for non-medical purposes. *ALTERNATE METHOD CONFIRMATION DONE UPON REQUEST ONLY* Deni Loomis DO LAB URINE ORDERABLES Final Res ult Performing Organization Address [facility] de Phone Number [facility] [address] [place] [address], * Buprenorphine screen, urine (01/30/2025 11:30 PM EDT) [facility] Buprenorphine Screen Urine Negative Negative LAB CHEMISTRY METHOD 01/31/2025 12:34 AM EDT [facility] Urine Urine specimen obtained by clean catch procedure / Unknown Non-blood Collection / Unknown 01/30/2025 11:30 PM EDT 01/30/2025 11:57 PM EDT Narrative [facility] - 01/31/2025 12:34 AM EDT Assay cutoff 5 ng/mL Semi-quantitative assay for screening purposes only. Unconfirmed screening result should not be used for non-medical purposes. *ALTERNATE METHOD CONFIRMATION DONE UPON REQUEST ONLY* Deni Loomis DO LAB URINE ORDERABLES Final Res ult Performing Organization Address [facility] de Phone Number [facility] [address] [place] [address], * Methadone, urine (01/30/2025 11:30 PM EDT) Methadone Screen, Urine Negative Negative LAB CHEMISTRY METHOD 01/31/2025 12:34 AM EDT [facility] Comment: Assay cutoff 300 ng/mL Semi-quantitative assay for screening purposes only. Unconfirmed screening result should not be used for non-medical purposes. *ALTERNATE METHOD CONFIRMATION DONE UPON REQUEST ONLY* Urine Urine specimen obtained by clean catch procedure / Unknown Non-blood Collection / Unknown 01/30/2025 11:30 PM EDT 01/30/2025 11:57 PM EDT us Deni Loomis DO LAB URINE ORDERABLES Final Res ult Performing Organization Address [facility] de Phone Number [facility] [address] [place] [address], [place] [phone] * Phencyclidine, urine (01/30/2025 11:30 PM EDT) PCP Scrn, Ur Negative Negative LAB CHEMISTRY METHOD 01/31/2025 12:34 AM EDT [facility] Comment: Assay cutoff 25 ng/mL Semi-quantitative assay for screening purposes only. Unconfirmed screening result should not be used for non-medical purposes. *ALTERNATE METHOD CONFIRMATION DONE UPON REQUEST ONLY* Urine Urine specimen obtained by clean catch procedure / Unknown Non-blood Collection / Unknown 01/30/2025 11:30 PM EDT 01/30/2025 11:57 PM EDT us Deni Loomis DO LAB URINE ORDERABLES Final Res ult Performing Organization Address [facility]/ZIP Co de Phone Number [facility] [address] [place] [address], [place] [phone] * POCT Glucose, blood (01/30/2025 10:38 PM EDT) Glucose POCT 96 70 - 100 mg/dL 01/30/2025 10:38 PM EDT [facility] Blood Capillary blood specimen / Unknown 01/30/2025 10:38 PM EDT 01/30/2025 10:40 PM EDT us Generic Provider Poct LAB POINT OF CARE TEST DOCKED DEVICE UNSOLICITED RESULTS Final Result [facility] [address] [place] [address], from Last 3 Months Insurance MEDICAID - [place] Care Teams Research Quality Assurance Analyst Relationship Specialty Start Date End Date Physician, No Pcp PCP - General 01/30/25
[2025-04-11 12:46] VITALS: BP 144/68; PULSE 89; BMI 25.2
== END 2025-04-11 12:53 | disposition home or self-care (01) ==
LOC: HO.HGS 12:39
PROVIDERS: PCP Nurse Practitioner Family; Visit Provider Surgery
DX: K60.30 Anal fistula, unspecified (principal)
CPT/HCPCS: 99213

== ENCOUNTER → 2025-04-11 12:39 | Outpatient (BNVA) | payer OTHER, MEDICAID, SELFPAY | PROVIDERS: PCP Nurse Practitioner Family; Visit Provider Surgery | DX: K60.30 Anal fistula, unspecified (principal) | CPT/HCPCS: 99212 ==

== ENCOUNTER 2025-06-06 08:42 | Outpatient (AMB) | payer OTHER, MEDICAID, SELFPAY ==
--- NOTE | 2025-06-06 08:48 | MHC.OFFVIS ---
Vital Signs 06/06/25 08:49 Height 5 ft 7 in Weight 164 lb BMI 25.7 Intake Visit Reasons: seton follow 11/11 Intake Note: Pt states, I'm here because of the gluteal abscess. c/o pain, drainage French Binding Folder Required: No Allergies No Known Allergies Allergy (Verified 06/06/25 08:52) Medication List - Last Reconciled 06/06/25 by Gianluca Almeida MD ibuprofen 600 mg PO Q8H PRN lurasidone 20 mg PO BID lurasidone (Latuda) 40 mg PO DAILY nicotine 1 patch transdermal DAILY oxycodone-acetaminophen 5-325 mg (Percocet) 1 tab PO BID PRN quetiapine 25 mg PO DAILY sertraline 25 mg PO DAILY HPI HPI seton follow 11/11: Details: He is here for follow-up for his anal fistula with a seton in place. He describes some scanty drainage from the fistula site. He says the seton is still present and has not cut through. Otherwise he denies any new pain or sinus. [facility] Medical History Panic disorder [episodic paroxysmal anxiety] Back pain Anal fistula Anxiety Surgical History History of surgery (11/05/22) Family History Mother No problems noted. Father No problems noted. Social History Alcohol intake: current Alcohol intake frequency: other Alcohol type: beer Patient Tobacco Use Status: Current everyday Tobacco user Cigarettes Per Day: 6 Review of Systems Const Denies chills and Denies fever(s) Card Denies chest pain, Denies dyspnea and Denies dyspnea on exertion Resp Denies cough, Denies dyspnea and Denies dyspnea on exertion GI Denies hematochezia and Denies change in bowel habits Denies hematuria and Denies difficulty urinating Musc Denies back pain and Denies limited range of motion Neuro Denies focal weakness and Denies convulsions Psych Denies depression and Denies mood swings Physical Exam Vital Signs: BMI result Body Mass Index 25.7 Const General: comfortable and no acute distress Resp Effort & Inspection: normal respiratory effort GI Other: Rectal exam shows the seton to be in place, with a short residual fistula tract. There is still room for the seton to be tightened I tightened this with a silk 2-0 tie. Assessment & Plan Assessment & Plan (1) Anal fistula: Code(s): K60.3 - Anal fistula Category: Medical Plan: The seton is still in place. I was able to tighten the seton to make this snug around the remaining fistula tract. The residual fistula tract is very short now. I am hoping that this will cut through completely. I will see me in the office next month. Coding Level of Care Code Est Pt Level 2 (91098) Diagnoses Anal fistula K60.3
[2025-06-06 08:49] VITALS: BMI 25.7
--- OUTSIDE RECORDS SUMMARY | 2025-06-06 08:53 | XMS_ITS | Clinical Summary ---
Author Organization [facility] Address [address] [place] [address] Phone Care Team Providers Care Biofuels Engineering Manager Name Role Phone Physician, No Pcp Primary Care Provider Unavaila ble Allergies No known active allergies Social History Tobacco Use Types Packs/Day Years [...] 80 01/31/2025 6:12 AM EDT Temperature 36.6 C (97.9 F) 01/31/2025 6:12 AM EDT Respiratory Rate 16 01/31/2025 6:12 AM EDT [...] - 2023-2 5 season) 2024 Influenza Vaccine (#1) 2025 HIB Vaccines Aged Out No longer [...] 5 Years) and At-Risk Patients (6 to 49 Years) Aged Out No longer eligible b ased on patient's age to complete this topic RSV Immunization Patients Un kathya 20 months Aged Out No longer eligible b ased on patient's age to complete this topic Varicella Vaccines Aged Out No longer eligible based on patient's age to complete this topic Insurance MEDICAID - [place] Care Teams Biofuels Engineering Manager Relationship Specialty Start Date End Date Physician, No Pcp PCP - General 01/30/25
== END 2025-06-06 09:12 | disposition home or self-care (01) ==
LOC: HO.HGS 08:43
PROVIDERS: PCP Nurse Practitioner Family; Referring Provider Surgery; Visit Provider Surgery
DX: K60.30 Anal fistula, unspecified (principal)
CPT/HCPCS: 99212

== ENCOUNTER → 2025-06-06 08:42 | Outpatient (BNVA) | payer OTHER, SELFPAY | PROVIDERS: PCP Nurse Practitioner Family; Visit Provider Surgery | DX: K60.30 Anal fistula, unspecified (principal) | CPT/HCPCS: 99212 ==

== ENCOUNTER → 2025-07-18 08:22 | Outpatient (BNVA) | payer OTHER, MEDICAID, SELFPAY | PROVIDERS: PCP Nurse Practitioner Family; Visit Provider Surgery | DX: Z48.89 Encounter for other specified surgical aftercare (principal); K60.30 Anal fistula, unspecified | CPT/HCPCS: 99212 ==

== ENCOUNTER 2025-07-18 09:12 | Outpatient (AMB) | payer OTHER, MEDICAID, SELFPAY ==
--- NOTE | 2025-07-18 09:19 | MHC.OFFVIS ---
Intake Visit Reasons: follow up seton Allergies No Known Allergies Allergy (Verified 06/06/25 08:52) HPI HPI follow up seton: Details: He is here for follow-up for a seton. He denies any new complaints. He says that he would occasionally sees some scanty drainage from the area. He does not have any new swelling or induration. [facility] Medical History Panic disorder [episodic paroxysmal anxiety] Back pain Anal fistula Anxiety Surgical History History of surgery (11/05/22) Family History Mother No problems noted. Father No problems noted. Social History Alcohol intake: current Alcohol intake frequency: other Alcohol type: beer Patient Tobacco Use Status: Current everyday Tobacco user Cigarettes Per Day: 6 Review of Systems Const Denies chills and Denies fever(s) Card Denies chest pain GI Denies abdominal pain Physical Exam Const General: comfortable and no acute distress Resp Effort & Inspection: normal respiratory effort GI Other: Rectal exam shows the seton to be in place on the right side with a very short residual fistula tract. There is some hypergranulation tissue adjacent to the seton. There were no new areas of induration Palpation (GI): Soft to palpation and not firm Assessment & Plan Assessment & Plan (1) Anal fistula: Code(s): K60.3 - Anal fistula Category: Medical Plan: The seton is still in place, with a very short residual fistula tract. I was able to tighten the seton some more to make this snug using a silk 2-0 tie I will see him again in the office in about 1 month. Coding Level of Care Code Est Pt Level 2 (02471) Diagnoses Anal fistula K60.3
== END 2025-07-18 09:20 | disposition home or self-care (01) ==
LOC: HO.HGS 09:12
PROVIDERS: PCP Nurse Practitioner Family; Visit Provider Surgery
DX: K60.30 Anal fistula, unspecified (principal)
CPT/HCPCS: 99212

== ENCOUNTER 2025-10-24 10:20 | Outpatient (AMB) | payer MEDICAID, SELFPAY ==
--- NOTE | 2025-10-24 10:21 | MHC.OFFVIS ---
Vital Signs 10/24/25 10:26 Height 5 ft 7 in Weight 178 lb 6 oz BMI 27.9 BP 116/62 Blood Pressure Location Rt brachial Position Sitting Pulse 74 Intake Visit Reasons: seton 11/11 Intake Note: Patient presents for a follow-up, seton. Pt c/o; reports no complaints. 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 I had last tightened this in June, He denies any new complaints. He does admit he had the areas seems to be tender and painful periodically. Other than that, he says he is coming along well. [facility] Medical History Panic disorder [episodic paroxysmal anxiety] Back pain Anal fistula Anxiety Surgical History History of surgery (11/05/22) Family History Mother No problems noted. Father No problems noted. Social History Alcohol intake: current Alcohol intake frequency: other Alcohol type: beer Patient Tobacco Use Status: Current everyday Tobacco user Cigarettes Per Day: 6 Review of Systems Const Denies chills and Denies fever(s) Card Denies chest pain at rest Resp Denies cough GI Denies abdominal pain Physical Exam Vital Signs: Last Vital Signs Pulse 74 10/24/25 10:26 BP 116/62 10/24/25 10:26 BMI result Body Mass Index 27.9 Const General: comfortable and no acute distress GI Other: Rectal exam shows the seton to be in place and this seemed to be still very tight around the remaining fistula tract. The remaining fistula tract is short he had there was no evidence of any recurrence or any new sinus Assessment & Plan Assessment & Plan (1) Anal fistula: Code(s): K60.3 - Anal fistula Category: Medical Plan: The seton this is still tight around the remaining fistula tract this is now very short. I did not tightened this. I would leave this alone to fall off on its own by cutting through the remaining short fistula tract I can see me in the office in about 2 months. He understands the plan. He is comfortable with this. Coding Level of Care Code Est Pt Level 2 (62928) Diagnoses Anal fistula K60.3
[2025-10-24 10:26] VITALS: BP 116/62; PULSE 74; BMI 27.9
--- OUTSIDE RECORDS SUMMARY | 2025-10-24 12:29 | XMS_ITS | Clinical Summary ---
Author Organization [facility] Address [address] [place] [phone] Phone Care Team Providers Care Data Technical Lead Name Role Phone Center, [facility] Primary Care Provider Unavailable Allergies No known active allergies Medications albuterol 90 mcg/actuation inhaler Inhale 2 puffs into the lungs every 4 (four) hours as needed. Active ondansetron (ZOFRAN) 4 MG tablet Take 1 tablet (4 mg total) by mouth every 8 (eight) hours as needed for nausea. 10 tablet 8 Active Additional Information Patient not taking.Reported on 12/31/2022 traMADoL (ULTRAM) 50 mg tablet Take 50 mg by mouth 3 (three) times a day as needed. 3 Active sertraline (ZOLOFT) 100 MG tablet Take 1 tablet by mouth daily. 3 Active QUEtiapine (SEROQUEL) 25 MG tablet Take 25 mg by mouth 2 (two) times a day as needed for anxiety. 2 Active lurasidone (LATUDA) 40 mg Tab Take 40 mg by mouth daily. 3 Active ibuprofen (ADVIL,MOTRIN) 600 MG tablet Take 600 mg by mouth every 6 (six) hours as needed for pain (specific location in comments). 2 Active clonazePAM (KLONOPIN) 1 MG tablet Take 1 tablet by mouth daily. 3 Active buPROPion (WELLBUTRIN SR) 100 MG SR 12 hr tablet Take 100 mg by mouth daily. 2 Active Active Problems Problem Noted Date Diagnosed Date Suicidal ideation 01/01/2023 Encounters Date Type Department Care Team Description 09/24/2025 4:43 PM EST - 09/24/2025 7:05 PM EST Emergency [facility] [address] [place] [address] Discharge Disposition: Home or Self Care from Last 3 Months Social History Tobacco Use Types Packs/Day Years Used Date Smoking Tobacco: Never Assessed Education Answer Date Recorded Are you interested in more education? Not on kwadwo e 03/18/2023 Are you concerned about learning? Not on file 03/18/2023 No 03/18/2023 No 03/18/2023 Digital Access Answer Date Recorded No 04/18/2023 No 04/18/2023 Reliable internet access at home? Not on file 04/18/2023 Device with a working camera? Not on file Intimate Partner Violence Answer Date R ecorded Are you denied basic needs s uch as food, clothing, or medical care? No 09/24/2025 In the past 12 months have y ou been in a relationship with a person who hurts, threatens, or tries to control you? No 09/24/2025 Are you denied basic needs s uch as food, clothing, or medical care? No 09/24/2025 In the past 12 months have y ou been in a relationship with a person who hurts, threatens, or tries to control you? No 09/24/2025 Sex and Gender Information Value Date Recorded Sex Assigned at Male 02/24/2023 4:06 AM EDT Legal Sex Male 10:24 PM EDT Gender Identity Male 02/24/2023 4:06 AM EDT Sexual Orientation Not on file Last Filed Vital Signs Vital Sign Reading Time Taken Comments Blood Pressure 113/60 09/24/2025 6:45 PM EST Pulse 79 09/24/2025 6:45 PM EST Temperature 37.1 C (98.8 F) 09/24/2025 6:45 PM EST Respiratory Rate 16 09/24/2025 6:45 PM EST Oxygen Saturation 99% 09/24/2025 6:45 PM EST Inhaled Oxygen Concentration - - Weight 81.6 kg (180 lb) 12/30/2022 7:03 PM EST Height 170.2 cm (5' 7 ) 08/17/2018 2:12 PM EDT Body Mass Index 28.19 08/17/2018 2:12 PM EDT Plan of Treatment Health Maintenance Due Date Last Done Comments DEPRESSION SCREENING 2009 SMOKING Hx and SMOKELESS TOBACCO SCREENING 2010 HEPATITIS C SCREENING 2015 HIV ONE-TIME SCREENING (18-65 YEARS) 2015 INFLUENZA VACCINE (#1) 2025 , 11/07/2020, 09/11/2019, Additional history exists COVID-19 VACCINE ( season) 2025 02/24/2021 Adult Td,Tdap Booster 02/23/2029 02/23/2019, 009 HIB VACCINES Completed 07/31/1998, 06/1998, 1997, Additional history exists MENINGOCOCCAL VACCINES (ACWY) Aged Out 02/23/2019, 01/06/2009 No longer eligibl e based on patient's age to complete this topic HEPATITIS A VACCINES Aged Out 09/17/2019, 03/27/2019, 02/23/2019 No longer eligible based on patient's age to complete this topic MENINGOCOCCAL VACCINES (B) Aged Out N o longer eligible based on patient's age to complete this topic PNEUMOCOCCAL VACCINES (0-49 years) Aged Out No longer eligible based on patient's age to complete this topic Medical Devices Not on file Procedures Procedure Name Priority Date/Time Associated Diagnosis Comments ECG 12-LEAD STAT 09/24/2025 6:51 PM EST from Last 3 Months Results * ECG 12-LEAD (09/24/2025 6:51 PM EST) Ventricular Rate EKG/MIN 72 BPM [facility] Atrial Rate 72 BPM [facility] MA Interval 158 ms [facility] QRS Duration 96 ms [facility] QT Interval 414 ms [facility] QTC Interval 453 ms [facility] P Thayer 36 degrees [facility] R Wave Thayer 52 degrees [facility] T Wave Thayer 40 degrees [facility] 09/24/2025 6:51 PM EST 09/26/2025 1:38 PM EST Narrative [facility] - 09/26/2025 1:38 PM EST Normal sinus rhythm Normal ECG When compared with ECG of 09-Feb-2023 19:57, No significant change was found Confirmed by Crispin Shannon ([id number]) on 09/26/2025 1:38:12 PM Jamshid Garcia PA-C ECG ORDERABLES Final Result [facility] from Last 3 Months Insurance [facility] C[facility] ACO [facility] C[facility] A[facility] Care Teams Data Technical Lead Relationship Specialty Start Date End Date [place] [facility] - [facility] 02/24/23 Additional Source Comments The information contained in this document represents components of the legal health record. It is not the complete legal health record.[facility]
--- OUTSIDE RECORDS SUMMARY | 2025-10-24 12:29 | XMS_ITS | Clinical Summary ---
Author Organization [facility] Address [address] [place] [phone] Phone Care Team Providers Care Vision Mixer Name Role Phone Physician, No Pcp Primary [...] of 3 - 19+ 3-dose series) 2016 HIV Screening 12/16/2023 Hepatitis C Screening 12/16/2023 Social Influencers of Health Screening 12/16/2023 HPV Vaccines (1 - 3-dose SCD M series) 2024 Depression Screening 11/21/2024 COVID-19 Vaccine (2024-2 6 season) 2025 Influenza Vaccine (#1) 2025 RSV Immunization Adult Patie nts (1 - 1-dose 75+ series) 2072 HIB Vaccines Aged Out No longer eligi [...] topic Insurance MEDICAID - [place] Care Teams Vision Mixer Relationship Specialty Start Date End Date Physician, No Pcp PCP - General 01/30/25
== END 2025-10-24 11:07 | disposition home or self-care (01) ==
LOC: HO.HGS 10:20
PROVIDERS: PCP Nurse Practitioner Family; Visit Provider Surgery
DX: K60.30 Anal fistula, unspecified (principal)
CPT/HCPCS: 99212

== ENCOUNTER → 2025-10-24 10:20 | Outpatient (BNVA) | payer MEDICAID, SELFPAY | PROVIDERS: PCP Nurse Practitioner Family; Visit Provider Surgery | DX: K60.30 Anal fistula, unspecified (principal) | CPT/HCPCS: 99212 ==